=== PATIENT | female | born 1970 | race Caucasian/White ===

== ENCOUNTER 2022-10-07 09:22 | Observation (INO) ==
[2022-10-07] MEDS ORDERED: MoRPHine SULFATE 2 MG/ML CARP IV STA (09:38)
[2022-10-07] MEDS ORDERED: NITROGLYCERIN 2% OINTMENT 30GM TUBE EXT STA (09:38)
[2022-10-07] MEDS ORDERED: ASPIRIN CHEW 324 MG ONE (09:43)
[2022-10-07] MEDS ORDERED: SODIUM CHLORIDE 0.9% 1000ML 1,000 ML IV SCH (09:45)
--- NOTE | 2022-10-07 09:48 | Emergency Department Note ---
Impression & Plan Chest pain, Abnormal ECG, Hypertension, ACS (acute coronary syndrome) ED Provider Note ED Provider Note NAME: COLLEEN BARNETT AGE:52 SEX: Female : 1970 ARRIVES VIA: Private INFORMANT: Patient ED PROVIDER(s): Livia Tijerina DO CHIEF COMPLAINT: Chest pain HPI: This is a 52-year-old female presents emergency department with concern for chest pain. Patient states pain began yesterday and was across her chest alth ough worse on the left side and felt as though it was radiating into her left shoulder. No further radiation down the left upper extremity. She states she was nauseated. She thought perhaps she had indigestion so she tried drinking Pepto-Bismol and then took an [id number] Prilosec without any improvement. Patient states the pain kept her awake most of the night and she could not find a comfortable position. Patient also notes she has been slightly more short of breath the last 2 days. She states in the middle the night she thought perhaps maybe this was bronchitis instead so she took a prednisone she had leftover from a prior episode. Patient states this did not help after several hours so this morning at 6 AM she took a hydrocodone she had leftover from a prior injury. She states this did not improve her symptoms either. Patient states she does have high blood pressure and is a smoker. She states no other recent change in medications or activity. Patient states she did have a cardiac catheterization 5 to 6 years ago and she was told she had several 60 and 70% blockages although no intervention was otherwise performed at that time. She states she has not followed up with cardiology since then. PAST MEDICAL HISTORY:See Below PAST SURGICAL HISTORY:See Below FAMILY HISTORY:See Below SOCIAL HISTORY:See Below HOME MEDICATIONS:See Below ALLERGIES:See Below VITALS:See Below PHYSICAL EXAMINATION: GENERAL: alert, well appearing, well nourished, no distress, non-toxic EYE EXAM: normal conjunctiva, PERRL and EOM's grossly intact OROPHARYNX: no exudate, no erythema, lips, buccal mucosa, and tongue normal and mucous membranes are moist NECK: supple, no nuchal rigidity, no adenopathy, non-tender LUNGS: Clear to auscultation. Normal chest wall mechanics, no w/r/r HEART: no murmurs, S1 normal and S2 normal ABDOMEN: abdomen soft, non-tender, normo-active bowel sounds, no masses, no rebound or guarding. BACK: Back is symmetrical on inspection and there is no deformity, no midline tenderness, no CVA tenderness. SKIN: no rashes, petechiae, orbruising UPPER EXTREMITIES: upper extremities are grossly normal. FROM, nml pulses b/l. LOWER EXTREMITIES: No pitting edema. FROM, nml pulses b/l. NEURO EXAM: Normal sensorium, cranial nerves II-XII grossly intact, normal speech, no facial droop,nogross weakness of arms, no gross weakness of legs. Gross sensation intact. No ataxia. Vital Signs: reviewed and remarkable Differential Diagnosis: ACS, PE, aortic dissection, pericarditis/myocarditis, coronary artery dissection, KATHY, pneumonia, hypertensive urgency, as well as others were considered MEDICAL DECISION MAKING: This is a 52-year-old female who presents emergency department due to concern for chest pain that began yesterday. Patient afebrile and vital signs stable though she was noted to be markedly hypertensive. This was presumed initially t o be secondary to pain. Patient with an abnormal EKG noted especially in comparison to an EKG from last year. While labs were drawn and sent, IV established, chest x-ray performed at bedside and patient placed on telemetry, I contacted Dr. Moore of cardiology. Dr. Moore is in agreement with concerning EKG findings and came and evaluated the patient at bedside. Case discussed with hospitalist additionally. Patient was given Nitropaste, IV morphine x2 doses, and aspirin. After discussion with Dr. Moore, Brilinta and heparin drip were also added by the hospitalist. Patient made aware of all findings and was in agreement with plan for additional intervention at this time Consultation(s): 0955: Discussed with Dr. Moore, cardiology. 1015: Discussed with Dr. Faustin, hospitalist. ER Treatment Provided: See below 1015: Dr. Moore now bedside. Diagnostics Interpreted By Me: -ECG: Normal sinus at 90, normal axis, normal intervals, ST elevation noted in 1, aVL, and V2 with appearance of early ST depression in leads III, aVF -Cardiac Monitoring: An order was placed for continuous cardiac monitoring. The monitor shows a rate of 88 with normal sinus rhythm. -Laboratory studies: As stated above and show below. -Imaging studies: X-ray Chest: A single view study of the chest was reviewed and was negative for cardiomegaly, focal infiltrate, effusion, pulmonary edema, or wide mediastinum. 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 Beliefs That Will Affect Care: None Current Living Situation: Alone Other Information That Helps Us Care for You: No Feels Safe at Home: Yes and No Is there a partner from a previous relationship who is making you feel unsafe now?: No Any Concerns about Your Family Situation: No Would You Like to Speak to Someone About Your Situation: No Safety Concerns: Feels Safe At This Time Assistive Devices: Denture - Upper, Denture - Lower and Glasses Allergies Allergies Allergy/AdvReac Type Severity Reaction Status Date / Time cefazolin Allergy Severe Severe Verified 10/07/22 10:31 hives Penicillins Allergy Unknown . Verified 07/24/21 08:56 Home Meds Home Medications Medication Instructions Recorded Confirmed hydrocodone 5 mg-acetaminophen 325 1 tab PO TID PRN Pain 10/07/22 10/07/22 mg tablet tizanidine 4 mg tablet 4 mg PO TID PRN Muscle Spasm 10/07/22 10/07/22 valsartan 160 1 tab PO HS 10/07/22 10/07/22 mg-hydrochlorothiazide 25 mg tablet Results & Data (ED) Vital Signs Vital Signs - 24 hr 10/07/22 09:24 10/07/22 09:40 10/07/22 09:55 Temperature 36.6 C Temperature Source Temporal Artery Scan Pulse Rate 98 H 90 Pulse Rate [Apical] 89 Pulse Rate from SpO2 Sensor Pulse Rhythm Regular Pulse Strength Normal Respiratory Rate 18 20 Respiratory Effort / Characteristics Non-Labored Non-Labored Respiratory Depth Normal Normal Respiratory Pattern Regular Blood Pressure 183/112 H Blood Pressure [Right Arm] 205/120 H Blood Pressure Mean 135 Blood Pressure Mean [Right Arm] 148 Blood Pressure Position Sitting Pulse Oximetry 100 99 Oxygen Delivery Method Room Air Room Air Sepsis Recent Fever Within 48 Hours No Sepsis New/Unexplained Change in Mental Status No Sepsis Action Taken by Nursing No Action Required 10/07/22 09:51 10/07/22 09:55 10/07/22 09:58 Temperature Temperature Source Pulse Rate 94 H 96 H Pulse Rate [Apical] Pulse Rate from SpO2 Sensor 94 H 99 H Pulse Rhythm Pulse Strength Respiratory Rate 18 Respiratory Effort / Characteristics Respiratory Depth Respiratory Pattern Blood Pressure Blood Pressure [Right Arm] 174/109 H Blood Pressure Mean Blood Pressure Mean [Right Arm] 130 Blood Pressure Position Pulse Oximetry 97 97 Oxygen Delivery Method Sepsis Recent Fever Within 48 Hours Sepsis New/Unexplained Change in Mental Status Sepsis Action Taken by Nursing 10/07/22 10:42 Temperature Temperature Source Pulse Rate Pulse Rate [Apical] Pulse Rate from SpO2 Sensor Pulse Rhythm Pulse Strength Respiratory Rate Respiratory Effort / Characteristics Respiratory Depth Respiratory Pattern Blood Pressure Blood Pressure [Right Arm] Blood Pressure Mean Blood Pressure Mean [Right Arm] Blood Pressure Position Pulse Oximetry Oxygen Delivery Method Room Air Sepsis Recent Fever Within 48 Hours Sepsis New/Unexplained Change in Mental Status Sepsis Action Taken by Nursing Laboratory Data 10/07/22 09:38 10/07/22 09:38 Lab Results 10/07/22 10/07/22 10/07/22 Range/Units 09:38 09:38 09:38 WBC 15.69 H (4.8-10.8) K/ul RBC 4.65 (4.20-5.40) M/uL Hgb 14.8 (12.0-16.0) g/dl Hct 42.6 (37.0-47.0) % MCV 91.6 (80.0-100.0) fL MCH 31.8 (25.0-34.0) pg MCHC 34.7 (32.0-36.0) g/dL RDW Std Deviation 41.4 (36.4-46.3) fL RDW Coeff of Evert 12.4 (11.5-14.5) % Plt Count 327 (130-400) K/uL MPV 11.5 (9.4-12.4) fL Immature Gran % (Auto) 0.3 % Neut % (Auto) 88.6 % Lymph % (Auto) 8.7 % Izard % (Auto) 2.0 % Eos % (Auto) 0.1 % Baso % (Auto) 0.3 % Neut # (Auto) 13.91 H (1.40-6.50) K/uL Lymph # (Auto) 1.36 (1.2-3.4) K/uL Izard # (Auto) 0.32 (0.11-0.59) K/uL Eos # (Auto) 0.01 (0-0.50) K/uL Baso # (Auto) 0.05 (0-0.2) K/uL Immature Gran # (Auto) 0.04 (0.01-0.20) K/uL PT 10.8 (9.0-12.0) Seconds INR 1.0 (0.9-1.1) Sodium 138 (136-145) mmol/L Potassium 3.7 (3.5-5.1) mmol/L Chloride 106 (98-107) mmol/L Carbon Dioxide 24 (21-32) mmol/L Anion Gap 8 (3-11) BUN 15 (6-23) mg/dl Creatinine 1.10 (0.6-1.2) mg/dl Est Cr Clr Drug Dosing 46.9 ml/min Est GFR ( Amer) 66.4 ml/min Est GFR (Non-Af Amer) 57.3 ml/min BUN/Creatinine Ratio 13.6 (10-20) Glucose 125 H (70-99(Fasting)) mg/dl Calcium 10.4 H (8.6-10.3) mg/dl Magnesium 1.9 (1.7-2.4) mg/dl Total Bilirubin 0.4 (0.2-1.0) mg/dl AST 103 H (13-39) U/L ALT 24 (7-52) U/L Alkaline Phosphatase 80 (34-104) U/L Troponin I High Sens 11113.4 H* (0-14) pg/ml Total Protein 8.5 H (6.0-8.3) gm/dl Albumin 5.0 (3.4-5.0) gm/dl Globulin 3.5 (2.5-4.0) gm/dl Albumin/Globulin Ratio 1.4 (0.9-2) Lipase 6 L (11-82) U/L TSH (0.300-4.500) uIu/ml SARS-CoV-2, RNA, NAAT (NEGATIVE) 10/07/22 10/07/22 Range/Units 09:38 09:57 WBC (4.8-10.8) K/ul RBC (4.20-5.40) M/uL Hgb (12.0-16.0) g/dl Hct (37.0-47.0) % MCV (80.0-100.0) fL MCH (25.0-34.0) pg MCHC (32.0-36.0) g/dL RDW Std Deviation (36.4-46.3) fL RDW Coeff of Evert (11.5-14.5) % Plt Count (130-400) K/uL MPV (9.4-12.4) fL Immature Gran % (Auto) % Neut % (Auto) % Lymph % (Auto) % Izard % (Auto) % Eos % (Auto) % Baso % (Auto) % Neut # (Auto) (1.40-6.50) K/uL Lymph # (Auto) (1.2-3.4) K/uL Izard # (Auto) (0.11-0.59) K/uL Eos # (Auto) (0-0.50) K/uL Baso # (Auto) (0-0.2) K/uL Immature Gran # (Auto) (0.01-0.20) K/uL PT (9.0-12.0) Seconds INR (0.9-1.1) Sodium (136-145) mmol/L Potassium (3.5-5.1) mmol/L Chloride (98-107) mmol/L Carbon Dioxide (21-32) mmol/L Anion Gap (3-11) BUN (6-23) mg/dl Creatinine (0.6-1.2) mg/dl Est Cr Clr Drug Dosing ml/min Est GFR ( Amer) ml/min Est GFR (Non-Af Amer) ml/min BUN/Creatinine Ratio (10-20) Glucose (70-99(Fasting)) mg/dl Calcium (8.6-10.3) mg/dl Magnesium (1.7-2.4) mg/dl Total Bilirubin (0.2-1.0) mg/dl AST (13-39) U/L ALT (7-52) U/L Alkaline Phosphatase (34-104) U/L Troponin I High Sens (0-14) pg/ml Total Protein (6.0-8.3) gm/dl Albumin (3.4-5.0) gm/dl Globulin (2.5-4.0) gm/dl Albumin/Globulin Ratio (0.9-2) Lipase (11-82) U/L TSH 0.611 (0.300-4.500) uIu/ml SARS-CoV-2, RNA, NAAT NEGATIVE (NEGATIVE) Administered Medications Discontinued Medications Aspirin (Aspirin Chew 324 Mg) Confirm Administered Dose 324 mg .ROUTE .STK-MED ONE Stop: 10/07/22 09:44 Last Admin: 10/07/22 09:55 Dose: Not Given Documented By: JO Aspirin (Aspirin Chew 324 Mg) 324 mg PO NOW STA Stop: 10/07/22 09:53 Last Admin: 10/07/22 09:55 Dose: 324 mg Documented By: JO Fentanyl Citrate (Fentanyl Citrate Pf 100 Mcg/2 Ml Vial) Confirm Administered Dose 100 mcg .ROUTE .STK-MED ONE Stop: 10/07/22 10:38 Last Admin: 10/07/22 12:10 Dose: 100 mcg Documented By: DAYNE Heparin Sodium (Porcine) (Heparin Sod (Porcine) 1000 Unit/Ml) 5,000 units IV NOW ONE Stop: 10/07/22 10:46 Last Admin: 10/07/22 12:12 Dose: Not Given Documented By: DAYNE Heparin Sodium (Porcine) (Heparin (Porcine) 1000 Unit/Ml 10 Ml (Hydrographer Use Only)) Confirm Administered Dose 10,000 units .ROUTE .STK-MED ONE Stop: 10/07/22 10:38 Last Admin: 10/07/22 12:21 Dose: 9,000 units Documented By: DAYNE Heparin Sodium/Sodium Chloride (Heparin In Nss Infusion 1000 Unit/500 Ml (2 U/Ml) Bag) Confirm Administered Dose 3,000 units IV .STK-MED ONE Stop: 10/07/22 10:38 Last Admin: 10/07/22 12:10 Dose: 3,000 units Documented By: DAYNE Hydralazine HCl (Hydralazine Hcl 20 Mg/Ml Vial) Confirm Administered Dose 20 mg .ROUTE .STK-MED ONE Stop: 10/07/22 12:09 Last Increment: 10/07/22 12:15 Dose: 10 mg Documented By: DAYNE Sodium Chloride (Nss 1000ml) 1,000 mls @ 75 mls/hr IV .[id number] TORY Stop: 10/07/22 13:02 Last Infusion: 10/07/22 14:10 Dose: 0 mls/hr Documented By: Admin: 10/07/22 09:45 Dose: 250 mls/hr Documented By: JO Midazolam HCl (Midazolam Hcl 1 Mg/Ml 2ml Vial) Confirm Administered Dose 2 mg .ROUTE .STK-MED ONE Stop: 10/07/22 10:38 Last Admin: 10/07/22 12:13 Dose: 2 mg Documented By: DAYNE Midazolam HCl (Midazolam Hcl 1 Mg/Ml 2ml Vial) Confirm Administered Dose 2 mg .ROUTE .STK-MED ONE Stop: 10/07/22 12:02 Last Increment: 10/07/22 12:24 Dose: 1 mg Documented By: DAYNE Morphine Sulfate (Morphine Sulfate 2 Mg/Ml Carp) 2 mg IV NOW STA Stop: 10/07/22 09:39 Last Admin: 10/07/22 09:45 Dose: 2 mg Documented By: JO Morphine Sulfate (Morphine Sulfate 4 Mg/Ml 1 Ml Carp\Vial) 4 mg IV NOW STA Stop: 10/07/22 10:18 Last Admin: 10/07/22 10:25 Dose: 4 mg Documented By: JO Nicardipine HCl (Nicardipine Hcl Inj 2.5 Mg/Ml 10 Ml Amp) Confirm Administered Dose 25 mg .ROUTE .ST-MED ONE Stop: 10/07/22 10:38 Last Admin: 10/07/22 12:11 Dose: 25 mg Documented By: DAYNE Nitroglycerin (Nitroglycerin 2% Ointment 30gm Tube) 1 inch EXT NOW STA Stop: 10/07/22 09:39 Last Admin: 10/07/22 09:44 Dose: 1 inch Documented By: JO Nitroglycerin/Dextrose (Nitroglycerin/D5w 100mcg/Ml 20ml Syr) Confirm Administered Dose 2,000 mcg .ROUTE .STK-MED ONE Stop: 10/07/22 10:39 Last Admin: 10/07/22 12:11 Dose: 2,000 mcg Documented By: DAYNE Ondansetron HCl (Ondansetron Inj 2 Mg/Ml 2 Ml Vial) Confirm Administered Dose 4 mg .ROUTE .STK-MED ONE Stop: 10/07/22 11:24 Last Admin: 10/07/22 12:12 Dose: 4 mg Documented By: DAYNE Ticagrelor (Ticagrelor 90 Mg Tab) 180 mg PO ONE ONE Stop: 10/07/22 10:21 Last Admin: 10/07/22 12:07 Dose: 180 mg Documented By: DAYNE Imaging Data Radiologist's Impression: Chest X-Ray 10/07/22 09:38 XR chest 1V portable CLINICAL HISTORY: Atypical chest pain. COMPARISON STUDY: Chest radiograph July 24, 2021. FINDINGS: Lung volumes are at the lower limits of normal. Incidental note is made of an azygos fissure. Lungs are clear. There is no pneumothorax or pleural effusion. Cardiac size is normal. Mediastinal contours are normal. There is no evidence for pulmonary edema. IMPRESSION: No acute cardiopulmonary findings. ACT 112: Negative or not required by law. Electronically signed by: Fer Goodwin M.D. 10/07/2022 9:59 AM Discharge Plan Visit Data Chief Complaint: Chest Pain Stated Complaint: SHARP CHEST PAIN, TINGLING DOWN R AND L SHOULDER ED Provider: Livia Tijerina Discharge Problem: Chest pain, Abnormal ECG, Hypertension, ACS (acute coronary syndrome) Patient Disposition: Admitted As Inpatient Discharge Instructions Interventions: ED Discharge Assessment Last Done: 10/07/22 10:42
[2022-10-07] MEDS ORDERED: ASPIRIN CHEW 324 MG PO STA (09:52)
--- NOTE | 2022-10-07 10:00 | XRay Report ---
XR chest 1V portable CLINICAL HISTORY: Atypical chest pain. COMPARISON STUDY: Chest radiograph July 24, 2021. FINDINGS: Lung volumes are at the lower limits of normal. Incidental note is made of an azygos fissur e. Lungs are clear. There is no pneumothorax or pleural effusion. Cardiac size is normal. Mediastinal contours are normal. There is no evidence for pulmonary edema. IMPRESSION: No acute cardiopulmonary findings. ACT 112: Negative or not required by law. Electronically signed by: Fer Goodwin M.D. 10/07/2022 9:59 AM
[2022-10-07 10:01] LABS: Basophils # (auto) 0.05 K/uL (0-0.2); Basophils % (auto) 0.3 %; Eosinophils # (auto) 0.01 K/uL (0-0.50); Eosinophils % (auto) 0.1 %; Hematocrit (blood only) 42.6 % (37.0-47.0); Hemoglobin 14.8 g/dl (12.0-16.0); Immature Granulocytes # (auto) 0.04 K/uL (0.01-0.20); Immature Granulocytes % (auto) 0.3 %; Lymphocytes # (auto) 1.36 K/uL (1.2-3.4); Lymphocytes % (auto) 8.7 %; Mean Corpuscular Hemoglobin 31.8 pg (25.0-34.0); Mean Corpuscular Hgb Conc 34.7 g/dL (32.0-36.0); Mean Corpuscular Volume 91.6 fL (80.0-100.0); Mean Platelet Volume 11.5 fL (9.4-12.4); Monocytes # (auto) 0.32 K/uL (0.11-0.59); Neutrophils # (auto) 13.91 K/uL (1.40-6.50); Neutrophils % (auto) 88.6 %; Platelet Count 327 K/uL (130-400); RDW Coefficient of Variation 12.4 % (11.5-14.5); RDW Standard Deviation 41.4 fL (36.4-46.3); Red Blood Count 4.65 M/uL (4.20-5.40); White Blood Count 15.69 K/ul (4.8-10.8)
[2022-10-07 10:12] LABS: Prothrombin Time 10.8 Seconds (9.0-12.0)
[2022-10-07] MEDS ORDERED: MoRPHine SULFATE 4 MG/ML 1 ML CARP\\VIAL IV STA (10:17)
[2022-10-07] MEDS ORDERED: TICAGRELOR 90 MG TAB PO ONE (10:20)
--- NOTE | 2022-10-07 10:34 | History & Physical Report ---
Date of Service October 07, 2022 Assessment & Plan (1) Chest pain: Plan: Jessika Trevizo is a 52-year-old female with a past medical history of hypertension, previously nonobstructive CAD who presents with chest pain. Chest pain, suspect acute TX Patient with sudden onset of constant, unremitting chest pain with some sweating and shortness of breath which onset at least 8-12 hours prior to presentation to the ER. Pain has not improved with Pepto-Bismol, prednisone, or hydrocodone. Pain has not significantly improved following nitro, did slightly improve with morphine while in the ER Patient reports she has had multivessel nonobstructive CAD in the past which did not require stenting, but this was many years ago She does not take aspirin. She is a current smoker. She has a history of hypertension poor outpatient control, hyperlipidemia not on a statin. No hi story of diabetes Chest x-ray: No acute findings Admitting EKG: Sinus. ST depressions are present in inferior leads, reciprocal change T wave inversions in I/aVL. QTc 479. Baseline EKG 06/2021: Sinus bradycardia rate 52. No ST segment or T wave changes. QTc 431 On admission patient has a slight leukocytosis of 15 in the setting of 1 dose of prednisone, hemoglobin is normal at 14.8, INR normal High-sensitivity troponin 95073 on admission consistent with ACS BMP pending on admission TSH normal Cardiology consulted, patient taken emergently to cardiac White [employer]ion [employer]er. Full dose aspirin, heparin 5000 units IV and Brilinta 180 mg x 1 given while in ER. Further recommendations pending catheterization results Hypertension Patient's been on various medications in the past with difficulty controlling her hypertension. Her beta-alanna was most recently stopped, and she is currently only on valsartanhydrochlorothiazide 320/25 mg taken in the evening. She does not take aspirin on admission, anticipate DAPT if stented for CAD Goal BSG while inpatient less than systolic 180 Anticipate beta-alanna addition following catheterization Patient has had difficult to control hypertension over the preceding year and has been on valsartanHCTZ, carvedilol, chlorthalidone, amlodipine, and metoprolol with inadequate success. Will obtain renal artery Dopplers for resistant hypertension post cath if remaining hypertensive. Denies history of hypokalemia/lower suspicion for hyperaldosteronism. Hyperlipidemia Lipid panel pending, patient does report she has a past history of hyperlipidemia not on statin. Denies history of myalgia Atorvastatin 80 mg ordered, adjust if needed based on lipid panel results Chronic back pain Multimodal pain control. Tylenol first-line, lidocaine patch second line, may use oxycodone 3 times daily for breakthrough. Hold for sedation Sensation of soft touch in hands and feet intact, moving all extremities equally at admission with no acute weakness. No loss of bowel/bladder function. No urinary retention. Current tobacco use Tobacco counseling provided. Patient expresses understanding that ongoing tobacco use increases her risk of heart attack and stroke, does express a strong interest in quitting especially given her current TX and family history of TX Patient would like NRT while in the hospital, patch ordered. Recommend PCP follow-up with continued and RT and tobacco cessation support DVT prophylaxis: SCDs pending creatinine results, PPx dose Lovenox starting 10/08 if no creatinine elevation or bleeding complications Diet: N.p.o. pending catheterization Disposition: PCU, currently undergoing catheterization CODE STATUS: Full code (2) Hypertension: (3) Abnormal ECG: History of Present Illness Primary Care Provider: Adalberto Pham MD Jessika reprots yesterday while at work she develops a gripping chest pain in the center of her chest. Tried pepcid-AC and tums and 'ate them a good hour straight' with no improvement/easing in her pain.Laid sitting upwards in the and continued to have chest pain. Eventually fell asleep, when she woke up still had pain in her chest. Tried prednisone she had leftover from bronchitis but that did not help at all. Later tried a hydrocodone which also did not help with the pain. She was then going to go to urgent care but daughter directed her to go to the ER. - Pain is radiating into her shoulder, currently 6/10. Worst was overnight ~8/10. Pain has been contstant since last night with no periods of complete remissions - Endorses shortness of breath with her chest pain. Attributed this to the bad smog initially - She has had clammy sweats and hot flashes for the last day. No fevers. - No leg swelling - +Nausea, no vomiting - No diarrhea/constipation History of cardiac catheterization at [facility], Dr. Bowen, in [place]. Was found to have multiple blockages, but none requiring a stent. No history of heart attack +Hx HTN No history of Afib No history of DM Hx HLD, not on any statin. Hasn't had testing in 'a while.' Med Review: - Hydrocodone for herniatic disk which radicular pain into the L left - Valsartan/hctz 2 tablets at night 25. - No longer takes carvedilol no metroprolol - Does not take aspirin Medical History: Reviewed Medications: Reviewed. Allergic to PCN (highly allergic, purple rash and swelling. Also cannot tolerate cephalosporins/keflex. Severe rxn and swelling ot keflex). Surgical History: Reviewed Family history: Reviewed. FHx of massive TX 66yo, father had 3x MIs and at 69 from massive 3rd TX. Allergies: Reviewed Social History: Current tobacco use 1ppd, 30 years. No etoh use. No rec drug or etoh use. Code Status: Full Allergies Allergy/AdvReac Type Severity Reaction Status Date / Time cefazolin Allergy Severe Severe Verified 10/07/22 10:31 hives Penicillins Allergy Unknown . Verified 07/24/21 08:56 Home Medications Medication Instructions Recorded Confirmed Type hydrocodone 5 mg-acetaminophen 325 1 tab PO TID PRN Pain 10/07/22 10/07/22 History mg tablet tizanidine 4 mg tablet 4 mg PO TID PRN Muscle Spasm 10/07/22 10/07/22 History valsartan 160 1 tab PO HS 10/07/22 10/07/22 History mg-hydrochlorothiazide 25 mg tablet Past Med/Surg History Medical History Hypertension Family History Other Family history non-contributory Social History Smoking Status: Current every day smoker Tobacco Type: Cigarettes Preferred Language: Trinidadian Feels Safe at Home: Yes Review of Systems Review of Systems: All systems reviewed & are unremarkable except as noted in HPI & below Physical Exam Physical Exam: General: A&Ox3. NAD. Cooperative. HEENT: Atraumatic, normocephalic. Vision/hearing intact Pulm: CTAB A&P. -wheezes, -rales, -rhonchi. Symmetrical chest rise. No increased work of breathing. No respiratory distress. Cardiac: RRR, -mrg. Radial pulses intact and symmetrical. No JVD. No sternal tenderness to palpation Abdominal: Nontender, nondistended, soft. BS present. Ext: warm, dry. No edema. Moves all extremities equally Results & Data Results & Data Vital Signs (Past 12 Hours) Vital Signs Temp Pulse Pulse Resp BP BP Pulse Ox 10/07/22 09:58 174/109 H 10/07/22 09:55 96 H 97 10/07/22 09:51 94 H 18 97 10/07/22 09:55 90 10/07/22 09:40 89 20 205/120 H 99 10/07/22 09:24 36.6 C 98 H 18 183/112 H 100 O2 Del Method 10/07/22 09:58 10/07/22 09:55 10/07/22 09:51 10/07/22 09:55 10/07/22 09:40 Room Air 10/07/22 09:24 Room Air PG Care Time/CCT Total # of Minutes Spent Total Time Spent with Patient: Total time spent is greater than 50% in coordination of care (as documented) at patient's floor/unit and/or counseling patient: Coding Level of Care Code 18513 INT INP/OBS CARE 3/75MIN Diagnoses Chest pain R07.9 Hypertension I10 Abnormal ECG R94.31
[2022-10-07] MEDS ORDERED: HEPARIN (PORCINE) 1000 UNIT/ML 10 ML (CATH LAB USE ONLY) ONE (10:37)
[2022-10-07] MEDS ORDERED: niCARdipine HCL INJ 2.5 MG/ML 10 ML AMP ONE (10:37)
[2022-10-07] MEDS ORDERED: MIDAZOLAM HCL 1 MG/ML 2ML VIAL ONE ×2 (10:37→12:01)
[2022-10-07] MEDS ORDERED: fentaNYL citrate PF 100 MCG/2 ML VIAL ONE (10:37)
[2022-10-07] MEDS ORDERED: NITROGLYCERIN/D5W 100MCG/ML 20ML SYR ONE (10:38)
[2022-10-07] MEDS ORDERED: HEPARIN SOD (PORCINE) 1000 UNIT/ML IV ONE (10:45)
[2022-10-07] MEDS ORDERED: NITROGLYCERIN SL 0.4 MG/TAB TAB SL PRN (10:48)
[2022-10-07] MEDS ORDERED: MoRPHine SULFATE 2 MG/ML CARP IV PRN (10:48)
[2022-10-07] MEDS ORDERED: ACETAMINOPHEN 325 MG TAB PO PRN (10:48)
--- NOTE | 2022-10-07 10:53 | Pre Anesthesia Assessment ---
Date of Service October 07, 2022 Pre Sedation Assessment Vital Signs Temp Pulse Pulse Resp BP BP Pulse Ox 10/07/22 10:42 10/07/22 09:58 174/109 H 10/07/22 09:55 96 H 97 10/07/22 09:51 94 H 18 97 10/07/22 09:55 90 10/07/22 09:40 89 20 205/120 H 99 10/07/22 09:24 97.9 F 98 H 18 183/112 H 100 O2 Del Method 10/07/22 10:42 Room Air 10/07/22 09:58 10/07/22 09:55 10/07/22 09:51 10/07/22 09:55 10/07/22 09:40 Room Air 10/07/22 09:24 Room Air Cardiovascular RRR, no murmur, no edema Respiratory normal respiratory effort, lungs clear to auscultation Pre-Sedation Airway Assessment Smoking Status: Current every day smoker Hx Sleep Apnea: No Hx Difficult Intubation: No Short, Thick Neck: No Thyromental Distance: > or= 3.5 Finger Breadths Oral Cavity: + WNL Mallampati Class: III ASA: ASA3 Procedure Planning Contraindications for Sedation: none Current Medications Reviewed: Yes Notes The planned sedation has been discussed with the patient. Informed Consent was obtained. I have identified the patient, determined the appropriateness of sedation and have assessed the patient immediately prior to the procedure. All medicine(s) and interventions are by my order.
[2022-10-07 10:54] LABS: Troponin I High Sensitivity 13326.4 pg/ml (0-14)
[2022-10-07 11:02] LABS: Bilirubin,Total 0.4 mg/dl (0.2-1.0); Calcium 10.4 mg/dl (8.6-10.3); Magnesium 1.9 mg/dl (1.7-2.4); Potassium 3.7 mmol/L (3.5-5.1)
[2022-10-07 11:08] LABS: Albumin Globulin Ratio 1.4 (0.9-2); BUN Creatinine Ratio 13.6 (10-20); Creatinine Clr Calc Pharmacy 46.9 ml/min; Est GFR (African American) 66.4 ml/min; Est GFR (Non-African American) 57.3 ml/min; Globulin 3.5 gm/dl (2.5-4.0); Total Protein 8.5 gm/dl (6.0-8.3)
[2022-10-07] MEDS ORDERED: ONDANSETRON INJ 2 MG/ML 2 ML VIAL ONE (11:23)
[2022-10-07] MEDS ORDERED: hydrALAZINE HCL 20 MG/ML VIAL ONE (12:08)
--- NOTE | 2022-10-07 12:56 | Post Anesthesia Assessment ---
Date of Service October 07, 2022 Post Sedation Assessment Vital Signs Temp Pulse Pulse Resp BP BP Pulse Ox 10/07/22 12:45 78 18 151/93 H 96 10/07/22 12:30 97 H 18 151/92 H 96 10/07/22 12:20 94 H 18 156/95 H 97 10/07/22 10:42 10/07/22 09:58 174/109 H 10/07/22 09:55 96 H 97 10/07/22 09:51 94 H 18 97 10/07/22 09:55 90 10/07/22 09:40 89 20 205/120 H 99 10/07/22 09:24 97.9 F 98 H 18 183/112 H 100 O2 Del Method 10/07/22 12:45 Room Air 10/07/22 12:30 Room Air 10/07/22 12:20 Room Air 10/07/22 10:42 Room Air 10/07/22 09:58 10/07/22 09:55 10/07/22 09:51 10/07/22 09:55 10/07/22 09:40 Room Air 10/07/22 09:24 Room Air Recovery Score Activity: Moves 4 extremities Respiration: Deep Breath/Cough Circulation: +/-20% PreAnes Value Consciousness: Fully Awake Oxygen Saturation: > 92% On Room Air Post Anesthesia Score: 10 Discharge Sedation Level of Care: Fast Track Phase II Post Sedation Plan On clinical assessment, the patient appears to have tolerated the sedation without complications. Patient is recovering as anticipated. Patient will continue to be monitored by nursing and may be discharged when sedation discharge criteria are met per below protocol. Upon Completions of procedure up to 15 minutes continue every 5 minute vital signs and the P.A.R. score; then discharge to a Phase I or Fast Track to Phase II per the following guidelines: * Discharge Patient to appropriate Phase II area if PAR is 8 or greater or return to pre- procedure baseline. The post - procedure orders will be as directed. * If PAR score is less than 8 or not return to pre-procedure baseline then patient will follow Phase I monitoring till PAR is reached for Phase II. The Phase I may be done in procedure room or may call to secure a Phase I area. * If naloxone or flumazenil are used for reversal, hold in Phase I for continued monitoring from when last reversal dose was given for a minimum of 60 minutes or longer pending the nurse and/or physician discretion of patient condition before discharge to Phase II. Please call the Sedation Physician to re-evaluate and complete post-note for discharge to Phase II area. Do NOT discharge from procedure sedation or Phase 1 until post- sedation evaluation note is complete by procedure /sedation MD Sedation Discharge Instructions to be given to the patient at discharge to home.
--- NOTE | 2022-10-07 12:59 | Post Operative Brief Note ---
Cardiology Brief Post Op Date of Surgery October 07, 2022 Pre & Post Diagnosis NSTEMI Procedure CAD Post PCI to diagonal Post PCI to LAD Welding Estimator Balwinder Moore MD Admeasurer Showers Estimated Blood Loss 15 Findings See Below 100% 1st Diagonal 75% mid LAD by IVUS Successful PCI of Diagonal with 2.25 x 15 Xience Successful PCI of mid LAD with 3.0 x 28 Xience Complications none Disposition Accompanied Patient To Recovery: Yes Disposition: PCU
--- NOTE | 2022-10-07 15:23 | Cardiology Consultation ---
Date of Consultation October 07, 2022 Assessment & Plan (1) ACS (acute coronary syndrome): Presentation consistent with high risk NSTEMI and recommend proceeding with urgent cardiac catheterization and likely PCI. No apparent contraindications to procedure. Discussed risks, benefits, alternatives of procedure with patient and they are willing to proceed. Given IV heparin and ticagrelor 180 mg in the ED. Further recommendations pending findings of coronary angiography. History of Present Illness Attending Physician: Balwinder Moore MD History of Present Illness Ms. Paris is a very pleasant 52-year-old woman here with acute chest pain and ECG concerning for ACS. Patient seen urgently in the ED with active/ongoing chest pain. She reports a history of prior coronary disease with angina. Previously underwent cardiac catheterization approximately 5 years ago in [facility] [address]. Per patient was told that she had a 60% stenosis and medical management recommended. Cardiac risk factors include hypertension, ongoing/long-term tobacco use. Yesterday she states she was at work when developed chest pain radiating to her back with associated nausea. She tried multiple vfgp-[id number] medications without relief. Symptoms persisted overnight at their worst 8 out of 10 this morning and presented to ED. On arrival ongoing active pain. Initial ECG showed subtle ST elevations in 1 and aVL new from prior ECG. Initial HS TropI elevated at 13,000. Mild relief with nitroglycerin, morphine. Social history: Moved back to the area from [place], [place]. 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 Has smoked for more than 30 years, 1 pack/day. Allergies Allergy/AdvReac Type Severity Reaction Status Date / Time cefazolin Allergy Severe Severe Verified 10/07/22 10:31 hives Penicillins Allergy Unknown . Verified 07/24/21 08:56 Home Medications Medication Instructions Recorded Confirmed Type hydrocodone 5 mg-acetaminophen 325 1 tab PO TID PRN Pain 10/07/22 10/07/22 History mg tablet tizanidine 4 mg tablet 4 mg PO TID PRN Muscle Spasm 10/07/22 10/07/22 History valsartan 160 1 tab PO HS 10/07/22 10/07/22 History mg-hydrochlorothiazide 25 mg tablet Patient History Medical History Hypertension Family History Other Family history non-contributory Social History Smoking Status: Current every day smoker Tobacco Type: Cigarettes Second Hand Exposure: Yes; Do You Dip or Chew Tobacco: No; Hx Alcohol Use: Yes Alcohol type: wine Hx Substance Use: No Preferred Language: Serbian New Car Inspector Required: No Beliefs That Will Affect Care: None Current Living Situation: Alone Other Information That Helps Us Care for You: No Feels Safe at Home: Yes and No Is there a partner from a previous relationship who is making you feel unsafe now?: No Any Concerns about Your Family Situation: No Would You Like to Speak to Someone About Your Situation: No Safety Concerns: Feels Safe At This Time Assistive Devices: Denture - Upper, Denture - Lower and Glasses Review of Systems Review of Systems: All systems reviewed & are unremarkable except as noted in HPI & below Physical Exam Physical Exam: General: Uncomfortable HEENT: Sclerae anicteric Lungs: Clear to auscultation bilaterally Cardiac: Regular rate and rhythm, no murmurs. Vascular: 2+ radial Abdomen: Soft, nontender Extremities: Well perfused, no peripheral edema Neuro: Nonfocal Psych: Alert orient x3, normal affect and mood Results & Data Vital Signs (Past 12 Hours) Vital Signs Temp Pulse Pulse Resp BP BP Pulse Ox 10/07/22 10:42 10/07/22 09:58 174/109 H 10/07/22 09:55 96 H 97 10/07/22 09:51 94 H 18 97 10/07/22 09:55 90 10/07/22 09:40 89 20 205/120 H 99 10/07/22 09:24 97.9 F 98 H 18 183/112 H 100 O2 Del Method 10/07/22 10:42 Room Air 10/07/22 09:58 10/07/22 09:55 10/07/22 09:51 10/07/22 09:55 10/07/22 09:40 Room Air 10/07/22 09:24 Room Air PG Care Time/CCT Total # of Minutes Spent Total Time Spent with Patient: Total time spent is greater than 50% in coordination of care (as documented) at patient's floor/unit and/or counseling patient: Coding Level of Care Code 06084 OFFICE CONSULT LVL 4/40M Diagnoses ACS (acute coronary syndrome) I24.9
--- NOTE | 2022-10-07 15:27 | Cardiac Catheterization ---
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 Cardiac Status Clinical evaluation leading to the procedure CAD Presenation: Non STEMI Anginal Classification: CCS IV Diagnostic Physicians Name: Balwinder Moore MD Closure Device Recommendations: PCI without planned CABG Cardiac Cath Procedure Full Procedure Date October 07, 2022 Pre-Procedure Diagnosis Pre-Procedure Diagnosis: Non STEMI AUC Score AUC Score: 8 Post-Procedure Diagnosis Post-Procedure Diagnosis: Severe CAD, Successful PCI and Normal Intracardiac Pressures Procedure(s) Performed Procedure(s) Performed: Coronary Angiography, Left Heart Cath, Drug Eluting Stent and IVUS Ultrasonographer Balwinder Moore MD Tax Adjuster(s) Showers Estimated Blood Loss Estimated Blood Loss: 15 Medication(s) Medication(s): Fentanyl, Heparin, Lidocaine 1%, Nicardipine, Nitroglycerin and Versed Summary of Findings Indication: High risk NSTEMI Access: 6 Fr right radial artery Catheters: [place], EBU 3.5 guide Findings: LM -normal caliber, no significant disease LAD -medium caliber, proximal luminal regularities, diffuse mid segment disease up to 50 to 60%. Distal vessel without significant disease and wraps around apex. Small to medium caliber D2 100% acute occlusion at ostium. Small D3 without disease. Circumflex -medium caliber, 30 to 40% mid segment stenosis, remainder of AV groove circumflex without significant disease. Proximal medium OM2 with 30% stenosis. RCA -dominant, medium caliber, 30 to 40% mid segment focal stenosis, distal vessel and RPDA without significant disease. LVEDP -19 -- PCI -- Antithrombotic therapy: Heparin, ticagrelor Procedure: Left main cannulated with EBU 3.5 guide Coding Analyst 50 wire passed across ostial D2 occlusion into distal vessel Intravascular position confirmed via injection through OTW balloon Flow reestablished in D2 with angioplasty with 2.0 balloon Prowater wire placed into distal LAD Reyes Qoof IVUS catheter placed across mid LAD stenosis into distal vessel. Pullback revealed diffuse moderate to severe disease up to 75% by IVUS, mildly calcified. Mild proximal disease, no significant left main disease. IVUS of D2 revealed diffuse disease extending to ostium. Mid LAD lesion stented with 3.0 x 28 mm Xience drug-eluting stent beginning just after takeoff of D2 Stent postdilated with 3.5 NC Proximal D2 predilated with 2.0 balloon Ostial/proximal D2 stented with 2.25 x 15 mm Xience drug-eluting stent Stent postdilated with stent balloon IC vasodilators administered for spasm Post procedure JAMES 3 flow throughout, stents well expanded with minimal residual stenosis and no apparent cardiac complications. Arterial Closure: TR band Summary: 1. Severe coronary artery disease Acute 100% ostial occlusion small to medium second diagonal 75% mid LAD stenosis by IVUS 2. Mild to moderate nonculprit vessel CAD 30 to 40% mid RCA, 30 to 40% mid circumflex 3. Elevated intracardiac filling pressure 4. Successful PCI of occluded D2 with single WILLIAM (2.25 x 15 mm Xience). 5. Successful PCI of mid LAD stenosis with single WILLIAM (3.0 x 28 mm Xience; postdilated with 3.5 NC). Recommendations: To PCU for continued monitoring Loaded with ticagrelor 180 mg Continue dual-antiplatelet therapy for at least 1 year Continue statin, and ASCVD risk factor modification including smoking cessation Consult cardiac Rehab Hemodynamics Rest Ao:: 160/83/118 Final Ao: 135/83/106 LV: 166/19 Recommendations Recommendations: PCI without planned CABG Specimens Specimens: None Radiation Exposure (mGy) 2512 Contrast (mls) 165 Anesthesia Moderate 9264-9606 Procedural Complication(s) None Disposition PCU I attest to the content of the Intraoperative Record and any orders documented therein. Any exceptions are noted below. M&D ANTIQUES & CONSIGNMENTG Card Cath Procedure Codes Cardiac Catheterization Procedure 1: Cardiovascular Cath Procedures: 02503 Coronaries and LHC (+/-LV) Therapeutic Services & Ancillary Procedure 1: Cardiovascular Tx and Anc Procedures: 02517 IV Ultrasound (Coronary or Graft) Moderate Sedation Procedure 1: Sedation/Anesthesia: 29703 Mod Sedation by the same physician;Init15 Min Child Age 5 & Up Procedure 2: Sedation/Anesthesia: 62398 Mod Sedation by the same physician; Ea [id number] Minutes Stenting Procedure 1: Cardiovascular Stent Procedures: 00871 Perc transluminal revascularization of acute sub/total occl, aMI PG Care Time/CCT Total # of Minutes Spent Total Time Spent with Patient: Total time spent is greater than 50% in coordination of care (as documented) at patient's floor/unit and/or counseling patient:
[2022-10-07] MEDS: METOPROLOL TARTRATE 25 MG TAB PO SCH (20:04)
[2022-10-07] MEDS: HYDROCODONE/ACETAMOPHEN 5/325MG TAB PO PRN (20:04)
[2022-10-08 01:28] LABS: Basophils # (auto) 0.05 K/uL (0-0.2); Basophils % (auto) 0.3 %; Eosinophils # (auto) 0.05 K/uL (0-0.50); Eosinophils % (auto) 0.3 %; Hemoglobin 13.2 g/dl (12.0-16.0); Immature Granulocytes # (auto) 0.05 K/uL (0.01-0.20); Immature Granulocytes % (auto) 0.3 %; Lymphocytes # (auto) 4.27 K/uL (1.2-3.4); Lymphocytes % (auto) 27.1 %; Mean Corpuscular Hemoglobin 32.2 pg (25.0-34.0); Mean Corpuscular Hgb Conc 34.7 g/dL (32.0-36.0); Mean Corpuscular Volume 92.7 fL (80.0-100.0); Mean Platelet Volume 11.6 fL (9.4-12.4); Monocytes # (auto) 1.33 K/uL (0.11-0.59); Monocytes % (auto) 8.4 %; Neutrophils # (auto) 9.99 K/uL (1.40-6.50); Neutrophils % (auto) 63.6 %; Platelet Count 257 K/uL (130-400); RDW Coefficient of Variation 12.8 % (11.5-14.5); RDW Standard Deviation 43.3 fL (36.4-46.3); White Blood Count 15.74 K/ul (4.8-10.8)
[2022-10-08 01:38] LABS: Bilirubin Direct 0.1 mg/dl (0-0.2); Bilirubin,Total 0.5 mg/dl (0.2-1.0); Calcium 9.5 mg/dl (8.6-10.3); Chol HDL Ratio 8.6 (0-5); Est GFR (African American) 56.9 ml/min; Est GFR (Non-African American) 49.1 ml/min; Potassium 3.6 mmol/L (3.5-5.1)
[2022-10-08] MEDS: HYDROCODONE/ACETAMOPHEN 5/325MG TAB PO PRN ×2 (06:17→13:21)
[2022-10-08] MEDS: METOPROLOL TARTRATE 25 MG TAB PO SCH (07:53)
[2022-10-08] MEDS ORDERED: ASPIRIN 81 MG ECTAB PO SCH (09:00)
[2022-10-08] MEDS ORDERED: ATORVASTATIN 40 MG TAB PO SCH (09:00)
[2022-10-08] MEDS ORDERED: TICAGRELOR 90 MG TAB PO SCH (09:00)
--- NOTE | 2022-10-08 09:37 | XCELERA ---
[id number] \\[id number]
[2022-10-08 09:45] LABS: Estimated Average Glucose 108 mg/dl; Hemoglobin A1C 5.4 % (4.5-5.6)
--- NOTE | 2022-10-08 15:46 | Discharge Summary ---
Date of Service October 08, 2022 Admission HPI Per Admitting Provider Jessika Trevizo is a 52-year-old female with a past medical history of hypertension, previously nonobstructive CAD who presents with chest pain. Chest pain, suspect acute LA Patient with sudden onset of constant, unremitting chest pain with some sweating and shortness of breath which onset at least 8-12 hours prior to presentation to the ER. Pain has not improved with Pepto-Bismol, prednisone, or hydrocodone. Pain has not significantly improved following nitro, did slightly improve with morphine while in the ER Patient reports she has had multivessel nonobstructive CAD in the past which did not require stenting, but this was many years ago She does not take aspirin. She is a current smoker. She has a history of hypertension poor outpatient control, hyperlipidemia not on a statin. No history of diabetes Chest x-ray: No acute findings Admitting EKG: Sinus. ST depressions are present in inferior leads, reciprocal change T wave inversions in I/aVL. QTc 479. Baseline EKG 06/2021: Sinus bradycardia rate 52. No ST segment or T wave changes. QTc 431 On admission patient has a slight leukocytosis of 15 in the setting of 1 dose of prednisone, hemoglobin is normal at 14.8, INR normal High-sensitivity troponin 73240 on admission consistent with ACS BMP pending on admission TSH normal Cardiology consulted, patient taken emergently to cardiac Carbide Tool Maker. Full dose aspirin, heparin 5000 units IV and Brilinta 180 mg x 1 given while in ER. Further recommendations pending catheterization results Principal Diagnosis Acute coronary syndrome status post 2 drug-eluting stent placed Discharge Exam Patient appears stable for discharge with no shortness of breath cardiac exam is regular Discharge Data Allergies Allergy/AdvReac Type Severity Reaction Status Date / Time cefazolin Allergy Severe Severe Verified 10/07/22 10:31 hives Penicillins Allergy Unknown . Verified 07/24/21 08:56 Consultations 10/07/22 10:18 ED Decision to Admit Stat 10/07/22 13:02 Consult Cardiac Rehabilitation Routine Procedures Performed Operation Date: 10/07/22 10:45 Actual Procedures s Cineradiography w/Routine Exam - Kendall Moore MD s Cath, Left with Cors and Vent - Kendall Moore MD s IVUS Coronary Single Vessel - Kendall Moore MD p Drug Eluting Stent SGl Vessel - Kendall Moore MD Ordered Studies 10/07/22 10:37 CL Cath Imgs for PACS use only Stat 10/07/22 12:34 CL IVUS Coronary Single Vessel Routine Hospital Course (1) Chest pain: Patient presents with acute coronary syndrome taken to the cardiac Carbide Tool Maker as mentioned in interval history she is previously known to have coronary disease. She had the following Carbide Tool Maker report 1. Severe coronary artery disease Acute 100% ostial occlusion small to medium second diagonal 75% mid LAD stenosis by IVUS 2. Mild to moderate nonculprit vessel CAD 30 to 40% mid RCA, 30 to 40% mid circumflex 3. Elevated intracardiac filling pressure 4. Successful PCI of occluded D2 with single WILLIAM (2.25 x 15 mm Xience). 5. Successful PCI of mid LAD stenosis with single WILLIAM (3.0 x 28 mm Xience; postdilated with 3.5 NC). Patient be discharged on dual antiplatelet agents currently Brilinta and aspirin but if Brilinta is not covered we will transition to Plavix atorvastatin and metoprolol. Her losartan will be held at this time unless blood pressure will allow and then DAHIANA inhibitor's or ARB's will be restarted. Cardiac echocardiogram showed an EF of 45 to 50% with severe hypokinesis and akinesis to the mid anteroseptum and mild inferior septum. Mild hypokinesis patient will need outpatient follow-up to see if her ejection fraction improves after stents are applied or if she would benefit from afterload reduction. Dr. Moore recommended cardiac rehab Social History: Current tobacco use 1ppd, 30 years. Tobacco cessation was counseled and recommended Code Status: Full (2) Hypertension: (3) Abnormal ECG: Total Time Total Time Spent Total Time Spent (In Minutes): It required greater than 30 minutes to prepare this patient for discharge Discharge Plan Discharge Items Patient Disposition: Home - Self-Care Reason For Visit: CHEST PAIN, ACUTE LA Discharge Diagnosis: n stemi wtih carciac stents placed in left anterior descending, and diagonal branch of LAD Activity: Per Instructions section Activity Comment: no intentional exercise until after Dr Moore follow up unless cardiac rehab Non-emergency contact: Primary Care Provider and Transportation Maintenance Supervisor Call non-emergency contact if: your symptoms worsen Follow-up/Referrals: Kendall Moore MD [Physician] - Adalberto Pham MD [Primary Care Provider] - Diet: Heart Healthy [facility] Attending Provider Instructions: ACTIVITY RECOMMENDATIONS: Excess manipulation of the wrist should be avoided for the next 24-48 hours. * No lifting over 2 pounds (approximately a 1/2 gallon of milk) with the utilized arm for 24 hours. * No strenuous activity such as bowling or tennis for 3 days. * Keep the site of the procedure covered with a bandage for 24 hours. *You may shower the day after the procedure. Do not take a tub bath or submerge the puncture site in water for the next 3 days. *Do not operate any motorized equipment for 3 days. SPECIAL CARE INSTRUCTIONS: The site may be slightly bruised and sore following your procedure. Should any of the following occur, contact the Dr. who performed your procedure. 1. Redness/inflammation, swelling, chills, or fever, or colored drainage at procedure site within 3-7 days after your procedure. 2. Coldness, discoloration, ongoing numbness, severe pain, or swelling. Expect mild tingling of hand and tenderness at the puncture site for up to three days. If this persists beyond three days, or other symptoms develop, notify the Dr. who performed your procedure. BLEEDING: If the procedure site on your wrist begins to bleed, do not panic 1. Place 1 or 2 fingers firmly just slightly above the insertion site to stop the bleeding. You may be able to feel your pulse as you hold pressure. 2. Lift your finger after 5 minutes to see if the bleeding has stopped. 3. Once the bleeding has stopped, gently wipe the wrist area clean with a bandage. * If the bleeding from your wrist does not stop after 10 minutes, or if there is a large amount of bleeding or spurting, call 911 (do not drive yourself to the hospital). SKIN IRRITATION: * You may experience some redness and/or swelling in the area where radiation was administered. If any skin irritation occurs, please contact your family physician. FOLLOW UP VISIT: Keep any scheduled doctor appointments. Pending Studies at Discharge: No Stand-Alone Forms: My [employer], Smoking Cessation Medications and DC Order Prescriptions: New atorvastatin 40 mg Tablet 40 mg PO QAM Qty: 30 3RF aspirin 81 mg Tablet,Delayed Release (Dr/Ec) 81 mg PO QAM Qty: 90 3RF nitroglycerin [Nitrostat] 0.4 mg Tablet, Sublingual 0.4 mg sublingual Q5M PRN (Reason: chest pain) Qty: 1 4RF metoprolol tartrate 25 mg Tablet 25 mg PO BID Qty: 60 3RF clopidogrel [Plavix] 75 mg tablet 75 mg PO DAILY Qty: 30 5RF Continued hydrocodone-acetaminophen 5-325 mg tablet 1 tab PO TID PRN (Reason: Pain) Discontinued tizanidine 4 mg tablet 4 mg PO TID PRN (Reason: Muscle Spasm) valsartan-hydrochlorothiazide 160-25 mg tablet 1 tab PO HS Discharge Orders: Discharge Order (Routine); Ordered 10/08/22 Ordered By: Renny Fofana/Other Patient Handouts: Heart Disease Women, Cardiac Procedures Admission Data Admit Date/Time: 10/07/22 10:48 Attending Provider: Kendall Moore Admit Provider: Freeman Faustin Primary Care Provider: Adalberto Pham Other Providers: Freeman Faustin Other Interventions: Discharge Summary Assessment (RN) Last Done: 10/08/22 15:56 Coding Level of Care Code 23532 INP/OBS DISCH >30 MIN Diagnoses Chest pain R07.9 Hypertension I10 Abnormal ECG R94.31
--- NOTE | 2022-10-08 16:49 | Cardiology Progress Note ---
Date of Service October 08, 2022 Assessment & Plan (1) ACS (acute coronary syndrome): Plan: Post PCI to occluded D2 and mid LAD stenosis 2. Mild nonculprit mid RCA, mid LCx disease 3. Low normal LV functionEF 45 to 50%, mid septal hypokinesis, mid to distal anterolateral hypokinesis. 4. Dyslipidemia LDL 208 5. Tobacco abuse Chest pain-free, troponin peaked. Hemodynamically and electrically stable. No access site complications. From a cardiac standpoint okay with discharge today. Home on DAPT with aspirin, clopidogrel for at least 1 year. Continue current statin, metoprolol. With mild KATHY post cath will hold off on starting ARB, likely started as an o utpatient. Discussed smoking cessation and she recently got nicotine patches. Discussed dietary modification (works at a [employer]). We will discuss cardiac rehab further at follow-up. Follow-up with me in 1 to 2 weeks. Admission and Anticipated Discharge Date Admission Date: October 07, 2022 Subjective Patient feeling well today. Denies any chest pain, shortness of breath. Had some of her usual back pain overnight but otherwise no new complaints. Telemetry reviewedsinus rhythm Review of Systems Review of Systems: All systems reviewed & are unremarkable except as noted in HPI & below Physical Exam Physical Exam: General: Comfortable HEENT: Sclerae anicteric Lungs: Clear to auscultation bilaterally, no crackles or wheezes Cardiac: Regular rate and rhythm, no murmurs. Vascular: Right radial artery access site with no ecchymosis, hematoma. Distal pulse and sensation intact. Abdomen: Soft, nontender Extremities: Well perfused, no peripheral edema Neuro: Nonfocal Psych: Alert orient x3, normal affect and mood Results & Data Vital Signs (Past 12 Hours) Vital Signs Temp Pulse Pulse Resp BP Pulse Ox O2 Del Method 10/08/22 15:56 98.8 F 80 18 133/82 97 10/08/22 15:42 98.8 F 80 18 133/82 97 Room Air 10/08/22 15:28 81 10/08/22 11:52 98.2 F 80 18 119/79 98 Room Air 10/08/22 08:00 125 H 10/08/22 08:11 97.7 F 87 18 144/92 H 97 Room Air PG Care Time/CCT Total # of Minutes Spent Total Time Spent with Patient: Total time spent is greater than 50% in coordination of care (as documented) at patient's floor/unit and/or counseling patient: Coding Level of Care Code 30292 SUB INP/OBS CARE 235MIN Diagnoses ACS (acute coronary syndrome) I24.9
--- NOTE | 2022-10-09 21:51 | Electrocardiogram Report ---
Test Reason : Blood Pressure : / mmHG Vent. Rate : 090 BPM Atrial Rate : 090 BPM P-R Int : 134 ms QRS Dur : 078 ms QT Int : 392 ms P-R-T Axes : 076 022 089 degrees QTc Int : 479 ms Normal sinus rhythm Septal infarct , age undetermined T wave abnormality, consider lateral ischemia ST elevation, consider lateral injury pattern Nonspecific ST abnormality Abnormal ECG When compared with ECG of 24-JUL-2021 09:31, Vent. rate has increased BY 38 BPM Septal infarct is now Present ST now depressed in Inferior leads QT has lengthened ST elevation now present in Lateral leads T wave inversion now evident in Lateral leads Confirmed by Buddy Braxton ([id number]) on 10/09/2022 9:51:07 PM Referred By: Confirmed By:Buddy Braxton
--- NOTE | 2022-10-09 22:30 | Electrocardiogram Report ---
Test Reason : Blood Pressure : / mmHG Vent. Rate : 087 BPM Atrial Rate : 087 BPM P-R Int : 132 ms QRS Dur : 076 ms QT Int : 402 ms P-R-T Axes : 066 034 098 degrees QTc Int : 483 ms Normal sinus rhythm T wave abnormality, consider lateral ischemia ST elevation, consider lateral injury pattern Prolonged QT Abnormal ECG When compared with ECG of 07-OCT-2022 09:30, Criteria for Septal infarct are no longer Present Confirmed by Buddy Braxton ([id number]) on 10/09/2022 10:29:55 PM Referred By: REFERRED SELF Confirmed By:Buddy Braxton
--- NOTE | 2022-10-10 05:53 | Electrocardiogram Report ---
Test Reason : Blood Pressure : / mmHG Vent. Rate : 098 BPM Atrial Rate : 098 BPM P-R Int : 132 ms QRS Dur : 080 ms QT Int : 388 ms P-R-T Axes : 070 063 094 degrees QTc Int : 495 ms Normal sinus rhythm Nonspecific ST abnormality ST elevation, consider lateral injury T wave abnormality, consider lateral ischemia Prolonged QT Abnormal ECG When compared with ECG of 07-OCT-2022 16:18, No significant change was found Confirmed by Buddy Braxton ([id number]) on 10/10/2022 5:53:13 AM Referred By: REFERRED SELF Confirmed By:Buddy Braxton
== END 2022-10-08 17:48 | disposition home or self-care (01) | DRG 247 ==
LOC: ED 09:22 → CC 10:42 → INTOOBSV 10:48 → 4W 10:48 → CC 11:03

== ENCOUNTER 2024-11-11 19:06 | Inpatient (IN) ==
[2024-11-11] MEDS: ASPIRIN CHEW 324 MG PO STA (19:18)
--- NOTE | 2024-11-11 19:32 | XRay Report ---
Chest radiograph, one view History: Chest pain Comparison: None Findings: Single AP view of the chest performed. No focal consolidation or pleural effusion. No pneumothorax. The cardiomediastinal silhouette is within normal limits. Normal pulmonary vascularity. No evidence for lymphadenopathy. No visualized bony or soft tissue abnormality. Impression: Normal chest radiograph Electronically signed by Balwinder Lou 11-11-2024 7:32 PM
--- NOTE | 2024-11-11 19:54 | Emergency Department Note ---
History of Present Illness General Chief Complaint: Chest Pain Stated Complaint: SOB, CHEST PAINS Time Seen by Provider: 11/11/24 19:11 History of Present Illness Provider Complaint: chest pain Onset (ago): day(s) (1.5) Onset: during exertion Pain Location: left chest Pain Radiation: LUE Severity: mild Maximum Pain Intensity: 10 Current Pain Intensity: 3 Quality: + aching and + heaviness Relieved By: + rest Exacerbated By: + exertion Context: no recent illness, no recent surgery, no recent immobilization, no recent travel, no trauma/injury, no new medications or no history of DVT/PE Associated symptoms: + dyspnea; no nausea, no syncope, no palpitations, no fever, no cough or no leg swelling Related Data On Oral Contraceptives: No Home Medications Medication Instructions Recorded Confirmed Type aspirin 81 mg tablet,delayed 81 mg PO QAM #90 tabs 10/08/22 11/11/24 Rx release lisinopril 20 mg tablet 20 mg PO BID #180 tabs 05/03/24 11/11/24 Rx nitroglycerin 0.4 mg sublingual 0.4 mg sublingual Q5M PRN chest 05/03/24 11/11/24 Rx tablet pain #20 tabs baclofen 10 mg tablet 10 mg PO BID PRN muscle spasm #60 08/06/24 11/11/24 Rx tabs pantoprazole 20 mg tablet,delayed 20 mg PO DAILY PRN 08/06/24 11/11/24 History release (Protonix) HEARTBURN/INDIGESTION amlodipine 5 mg tablet 5 mg PO BID 11/11/24 11/11/24 History clopidogrel 75 mg tablet (Plavix) 75 mg PO HS 11/11/24 11/11/24 History metoprolol succinate 50 mg 50 mg PO HS 11/11/24 11/11/24 History tablet,extended release 24 hr Allergies Allergy/AdvReac Type Severity Reaction Status Date / Time cefazolin Allergy Severe Severe Verified 11/11/24 21:07 hives Penicillins Allergy Severe SWELLING Verified 11/11/24 21:07 ALL OVER, PURPLE BLOTCHES ALL OVER duloxetine AdvReac Severe Depression Verified 11/11/24 21:07 Past Med/Surg History Problem List (Updated 11/11/24 @ 21:15 by Cameron Solis MD) Elevated troponin (Acute) Chronic back pain Nicotine use Anxiety Dyslipidemia Presence of drug-eluting stent in anterior descending branch of left coronary artery CAD (coronary artery disease) S/P Drug Eluting Stents in D2 and Mid LAD. ACS (acute coronary syndrome) (Acute) Abnormal ECG (Acute) Hypertension (Chronic) Chest pain (Acute) Chest pain (Acute) Medical History Hypertension Surgical History Status post cholecystectomy History of sinus surgery x3 History of tympanostomy x11 History of partial hysterectomy Status post section x4 Family History Mother Myocardial infarction Father Myocardial infarction Other Family history non-contributory Denies family history of Ovarian cancer Prostate cancer Breast cancer Colorectal cancer Social History Smoking Status: Current every day smoker Tobacco Type: Cigarettes Age Started Using Tobacco: 18; packs per day: 0.75; Second Hand Exposure: Yes; Do You Dip or Chew Tobacco: No; Hx Alcohol Use: No Hx Substance Use: No Preferred Language: Beninese Communication Ability: Effective Visual Impairment: No Limitations Hearing Ability: Normal Consulting Services Manager Required: No Beliefs That Will Affect Care: None marital status: Single Current Living Situation: Family current occupation: [employer] Feels Safe at Home: Yes Diet: low salt caffeine: Yes during the past year weight has: remained stable Dental Care, Regularly: No Physical Activity Frequency: Daily Seatbelt Use: always Sunscreen Use: Yes Assistive Devices: None Physical Exam Vital Signs Vital Signs - 24 hr 11/11/24 19:09 11/11/24 19:11 11/11/24 19:14 Temperature 36.8 C Temperature Source Temporal Artery Scan Pulse Rate 94 H 97 H Pulse Rate [Right Finger] Respiratory Rate 18 Respiratory Effort / Characteristics Non-Labored Spontaneous Respiratory Depth Normal Respiratory Pattern Regular Blood Pressure 199/98 H Blood Pressure [Right Arm] Blood Pressure Mean 131 Blood Pressure Mean [Right Arm] Blood Pressure Position Sitting Pulse Oximetry 98 98 Oxygen Delivery Method Room Air Room Air Sepsis Recent Fever Within 48 Hours No Sepsis New/Unexplained Change in Mental Status N/A Sepsis Action Taken by Nursing No Action Required 11/11/24 19:16 11/11/24 20:55 Temperature Temperature Source Pulse Rate Pulse Rate [Right Finger] 75 Respiratory Rate 20 Respiratory Effort / Characteristics Non-Labored Spontaneous Respiratory Depth Normal Respiratory Pattern Blood Pressure Blood Pressure [Right Arm] 167/92 H Blood Pressure Mean Blood Pressure Mean [Right Arm] 117 Blood Pressure Position Pulse Oximetry 98 97 Oxygen Delivery Method Room Air Room Air Sepsis Recent Fever Within 48 Hours Sepsis New/Unexplained Change in Mental Status Sepsis Action Taken by Nursing Physical Exam GENERAL: oriented to person, place, and time. appears well-developed and well- nourished. HENT: Exam performed. - Head: Normocephalic and atraumatic. EYES: Conjunctivae and EOM are normal. Right eye exhibits no discharge. Left eye exhibits no discharge. No scleral icterus. NECK: Normal range of motion. Neck supple. No JVD present. CV: Normal rate, regular rhythm, normal heart sounds and intact distal pulses. There is no peripheral edema. Palpable radial pulses bue. PULM/CHEST: Effort normal and breath sounds normal. No respiratory distress. No stridor. no wheezes. no rales. ABD: The abdomen is soft. There is no tenderness. NEURO: Motor and sensation grossly intact. SKIN: Skin is warm and dry. He is not diaphoretic. PSYCH: normal mood and affect. Behavior is normal. Judgment and thought content normal. Course Course 1910: The patient was evaluated in room C4. A complete history and physical exam was performed Cardiac monitoring: An order was placed for continuous cardiac monitoring. The monitor shows a rate of 90 with sinus rhythm interpreted by la 2044: Vital signs stable. Patient reports her chest pain is not present while she is resting. Patient asking for nicotine patch. Labs and imaging are unremarkable with exception of mildly elevated high-sensitivity troponin of 86.5. Discussed the case with Dr. Huerta on-call [facility] in the cardiology. She recommends holding off on heparinization at this time and to trend troponins. Patient will be admitted to the [facility] hospitalist team. Administered Medications Discontinued Medications Aspirin (Aspirin Chew 324 Mg) 324 mg PO NOW STA Stop: 11/11/24 19:12 Last Admin: 11/11/24 19:18 Dose: 324 mg Documented By: ANAHY Medical Decision Making Medical Records Attestation: I reviewed the patient's medical records. Medical records narrative: Patient had a cardiac catheterization performed by Dr. Moore in September 2022. Patient had 100% occlusion of her D2 at the ostium. Patient had 2 stents placed at that time. Her current circumflex showed 3040% mid segment stenosis and a proximal medium OM 2 with 30% stenosis. RCA was dominant medium caliber with 30 to 40% mid segment focal stenosis. Left main shows normal caliber without any significant disease. Laboratory Data Attestation: I reviewed the patient's lab results. 11/11/24 19:23 11/11/24 19:23 Labs: Lab Results 11/11/24 Range/Units 19:23 WBC 11.43 H (4.8-10.8) K/ul RBC 3.95 L (4.20-5.40) M/uL Hgb 12.3 (12.0-16.0) g/dl Hct 36.4 L (37.0-47.0) % MCV 92.2 (80.0-100.0) fL MCH 31.1 (25.0-34.0) pg MCHC 33.8 (32.0-36.0) g/dL RDW Std Deviation 42.2 (36.4-46.3) fL RDW Coeff of Evert 12.5 (11.5-14.5) % Plt Count 298 (130-400) K/uL MPV 11.4 (9.4-12.4) fL Immature Gran % (Auto) 0.3 % Neut % (Auto) 59.0 % Lymph % (Auto) 31.0 % [place] % (Auto) 7.5 % Eos % (Auto) 1.6 % Baso % (Auto) 0.6 % Neut # (Auto) 6.74 H (1.40-6.50) K/uL Lymph # (Auto) 3.54 H (1.20-3.40) K/uL [place] # (Auto) 0.86 H (0.11-0.59) K/uL Eos # (Auto) 0.18 (0.00-0.50) K/uL Baso # (Auto) 0.07 (0.00-0.20) K/uL Immature Gran # (Auto) 0.04 (0.01-0.20) K/uL PT 10.5 (9.0-12.0) Seconds INR 1.0 (0.9-1.1) APTT 28 (21-31) Seconds PTT Ratio 1.0 Sodium 139 (136-145) mmol/L Potassium 3.5 (3.5-5.1) mmol/L Chloride 105 (98-107) mmol/L Carbon Dioxide 24 (21-32) mmol/L Anion Gap 10 (3-11) BUN 24 H (6-23) mg/dl Creatinine 1.16 (0.6-1.2) mg/dl Est Cr Clr Drug Dosing 43.4 ml/min eGFR 55.68 BUN/Creatinine Ratio 20.7 H (10-20) Glucose 99 (70-99(Fasting)) mg/dl Calcium 9.6 (8.6-10.3) mg/dl Troponin I High Sens 86.5 H* (0-14) pg/ml Lipase 15 (11-82) U/L Imaging Data Chest x-ray: Attestation: I personally reviewed and interpreted this imaging study as follows: My impression: Chest x-ray negative. Airway clear. No pneumothorax. No consolidation. No cardiomegaly or cephalization.. No free air under the diaphragm. No fractures of the skeletal structures. Radiologist's impression: Chest X-Ray 11/11/24 19:11 Chest radiograph, one view History: Chest pain Comparison: None Findings: Single AP view of the chest performed. No focal consolidation or pleural effusion. No pneumothorax. The cardiomediastinal silhouette is within normal limits. Normal pulmonary vascularity. No evidence for lymphadenopathy. No visualized bony or soft tissue abnormality. Impression: Normal chest radiograph Electronically signed by Balwinder Lou 11-11-2024 7:32 PM ECG Data Attestation: I personally reviewed and interpreted this ECG as follows: Rate (beats per minute): 95 Rhythm: normal sinus Findings: no ST depression, no ST elevation or no prolonged QT MDM Narrative 191: The patient was evaluated in room C4. A complete history and physical exam was performed Cardiac monitoring: An order was placed for continuous cardiac monitoring. The monitor shows a rate of 90 with sinus rhythm interpreted by me 2044: Vital signs stable. Patient reports her chest pain is not present while she is resting. Patient asking for nicotine patch. Labs and imaging are unremarkable with exception of mildly elevated high-sensitivity troponin of 86.5. Discussed the case with Dr. Huerta on-call [facility] in the cardiology. She recommends holding off on heparinization at this time and to trend troponins. Patient will be admitted to the [facility] hospitalist team. Impression & Plan Chest pain, Elevated troponin Discharge Plan Visit Data Chief Complaint: Chest Pain Stated Complaint: SOB, CHEST PAINS ED Provider: Cameron Solis Discharge Problem: Chest pain, Elevated troponin Patient Disposition: Admitted As Inpatient Condition: Fair Forms Stand Alone Forms: My [facility] Prescriptions Prescriptions: No Action pantoprazole [Protonix] 20 mg tablet,delayed release (DR/EC) 20 mg PO DAILY PRN (Reason: HEARTBURN/INDIGESTION) baclofen 10 mg tablet 10 mg PO BID PRN (Reason: muscle spasm) Qty: 60 1RF lisinopril 20 mg tablet 20 mg PO BID Qty: 180 3RF nitroglycerin 0.4 mg tablet, sublingual 0.4 mg sublingual Q5M PRN (Reason: chest pain) Qty: 20 3RF Rx Instructions: do not exceed 3 doses per episode aspirin 81 mg Tablet,Delayed Release (Dr/Ec) 81 mg PO QAM Qty: 90 3RF metoprolol succinate 50 mg tablet extended release 24 hr 50 mg PO HS clopidogrel [Plavix] 75 mg tablet 75 mg PO HS amlodipine 5 mg tablet 5 mg PO BID Referrals Referrals: Robert Calderon DO [Primary Care Provider] -
[2024-11-11 19:58] LABS: Hematocrit (blood only) 36.4 % (37.0-47.0); Hemoglobin 12.3 g/dl (12.0-16.0); Immature Granulocytes # (auto) 0.04 K/uL (0.01-0.20); Immature Granulocytes % (auto) 0.3 %; Mean Corpuscular Hemoglobin 31.1 pg (25.0-34.0); Mean Corpuscular Volume 92.2 fL (80.0-100.0); Platelet Count 298 K/uL (130-400); RDW Standard Deviation 42.2 fL (36.4-46.3); Red Blood Count 3.95 M/uL (4.20-5.40); White Blood Count 11.43 K/ul (4.8-10.8)
[2024-11-11 20:15] LABS: Anion Gap 10.0 (3-11); Blood Urea Nitrogen 24.0 mg/dl (6-23); Calcium 9.6 mg/dl (8.6-10.3); Carbon Dioxide 24.0 mmol/L (21-32); Chloride 105.0 mmol/L (98-107); Creatinine Clr Calc Pharmacy 43.4 ml/min; Glucose 99.0 mg/dl (70-99(Fasting)); Lipase 15.0 U/L (11-82); Potassium 3.5 mmol/L (3.5-5.1); Sodium 139.0 mmol/L (136-145)
[2024-11-11 20:37] LABS: INR 1.0 (0.9-1.1); Partial Thromboplastin Time 28 Seconds (21-31); Prothrombin Time 10.5 Seconds (9.0-12.0)
--- NOTE | 2024-11-11 22:50 | History & Physical Report ---
Date of Service November 11, 2024 Assessment & Plan (1) Chest pain: (2) Hypertension: (3) Dyslipidemia: (4) CAD (coronary artery disease): Plan 54yo female with history of HTN, HLP, Known CAD s/p WILLIAM to D2 and LAD in September 2022 presenting with multiple episodes of exertional chest discomfort, palpitations occurring over the last several days. #Chest pain/Known CAD s/p stenting in September 2022 - EKG with no acute ischemic changes. Troponin is mildly elevated 86.5 --> 108.7 -Observation to PCU -Trend troponin to peak -Check 2D echo -Continue home medications - ASA 81mg daily, Plavix 75mg daily, Metoprolol 50mg po qHS, Lisinopril 20mg po BID -Hold Amlodipine for now -Nitro PRN chest pain -EKG with chest pain -Cardiology consultation appreciated #Hypertension -Continue Metoprolol, Lisinopril -Holding Amlodipine for now -Monitor #Hyperlipidemia -Patient not able to tolerate statins #Encourage smoking cessation History of Present Illness Chief Complaint: chest pain Primary Care Provider: DO Jessika Major Wellington is a pleasant 54yo female with history of CAD s/p WILLIAM to D2 and LAD in September 2022, HTN, HLP and ICM (EF 55% per stress echo 03/2023) presenting with 1.5 days of chest pain. 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 Over the last several days she has been experiencing significant substernal chest discomfort and heartburn symptoms as well as occasionally "seeing stars". Patient went camping this weekend and was trying to unload some chairs from the truck when she developed some significant gas, pain into her left chest and shoulder and palpitations. Later in the day she was out to eat with her family when she developed some very severe chest discomfort on the left side with palpitations. Today she was at a baseball game with her family and she developed severe chest pain with mild diaphoresis and nausea. She took almost an entire bottle of Pepto Bismol with no relief in her symptoms so she came to the ER. Symptoms lasted approximately 2 hours. Patient is active at baseline. Denies exertional chest discomfort prior to these episodes. No pain at rest but patient endorses significant left sided chest pain with ambulation over the last several days. In the ER she is afebrile, HD stable, Chest Pain free ER Course: ASA 324mg Allergies Allergy/AdvReac Type Severity Reaction Status Date / Time cefazolin Allergy Severe Severe Verified 11/11/24 21:07 hives Penicillins Allergy Severe SWELLING Verified 11/11/24 21:07 ALL OVER, PURPLE BLOTCHES ALL OVER duloxetine AdvReac Severe Depression Verified 11/11/24 21:07 Home Medications Medication Instructions Recorded Confirmed Type aspirin 81 mg tablet,delayed 81 mg PO QAM #90 tabs 10/08/22 11/11/24 Rx release lisinopril 20 mg tablet 20 mg PO BID #180 tabs 05/03/24 11/11/24 Rx nitroglycerin 0.4 mg sublingual 0.4 mg sublingual Q5M PRN chest 05/03/24 11/11/24 Rx tablet pain #20 tabs baclofen 10 mg tablet 10 mg PO BID PRN muscle spasm #60 08/06/24 11/11/24 Rx tabs pantoprazole 20 mg tablet,delayed 20 mg PO DAILY PRN 08/06/24 11/11/24 History release (Protonix) HEARTBURN/INDIGESTION amlodipine 5 mg tablet 5 mg PO BID 11/11/24 11/11/24 History clopidogrel 75 mg tablet (Plavix) 75 mg PO HS 11/11/24 11/11/24 History metoprolol succinate 50 mg 50 mg PO HS 11/11/24 11/11/24 History tablet,extended release 24 hr Past Med/Surg History Problem List Elevated troponin (Acute) Chronic back pain Nicotine use Anxiety Dyslipidemia Presence of drug-eluting stent in anterior descending branch of left coronary artery CAD (coronary artery disease) S/P Drug Eluting Stents in D2 and Mid LAD. ACS (acute coronary syndrome) (Acute) Abnormal ECG (Acute) Hypertension (Chronic) Chest pain (Acute) Chest pain (Acute) Medical History Hypertension Surgical History Status post cholecystectomy History of sinus surgery x3 History of tympanostomy x11 History of partial hysterectomy Status post section x4 Family History Mother Myocardial infarction Father Myocardial infarction Other Family history non-contributory Denies family history of Ovarian cancer Prostate cancer Breast cancer Colorectal cancer Social History Smoking Status: Current every day smoker Tobacco Type: Cigarettes Age Started Using Tobacco: 18; packs per day: 0.75; Cigarettes Per Day: 1 pack/day; Second Hand Exposure: Yes; Do You Dip or Chew Tobacco: No; Hx Alcohol Use: No Hx Substance Use: No Preferred Language: Tunisian Communication Ability: Effective Visual Impairment: No Limitations Hearing Ability: Normal Workday Consultant Required: No Beliefs That Will Affect Care: None marital status: Single Current Living Situation: Family current occupation: [employer] Feels Safe at Home: Yes Safety Concerns: Feels Safe At This Time Diet: low salt caffeine: Yes during the past year weight has: remained stable Dental Care, Regularly: No Physical Activity Frequency: Daily Seatbelt Use: always Sunscreen Use: Yes Assistive Devices: None Review of Systems Review of Systems: All systems reviewed & are unremarkable except as noted in HPI & below Physical Exam Physical Exam: General: patient resting comfortably, NAD, non-toxic in appearance, AA&O x 4 Skin: warm, dry, intact, no rashes or lesions HEENT: NC/AT, PERRL, EOMI, anicteric sclera, conjunctiva without injection, external ear normal to inspection and nontender, nares patent, moist mucus membranes, dentition intact, no oropharyngeal lesions, neck supple, trachea midline, no LAD, no thyromegaly, no JVD Heart: +S1/S2, regular, no m/r/g, no reproducible chest wall pain or epigastric pain Lungs: equal air entry bilaterally, no rales/rhonchi/wheezes Abd: +BS, soft, NT/ND, no masses/organomegaly/ascites Ext: warm, 2+ pulses in UE/LE bilaterally, no clubbing/cyanosis or edema Neuro: nonfocal, patient AA&O x 4, speech intact, no facial droop, moving all extremities on command with equal strength 5/5 Results & Data Results & Data Vital Signs (Past 12 Hours) Vital Signs Temp Pulse Pulse Resp BP BP Pulse Ox 11/11/24 22:00 72 20 144/88 H 96 11/11/24 20:55 75 20 167/92 H 97 11/11/24 19:16 98 11/11/24 19:14 97 H 11/11/24 19:11 98 11/11/24 19:09 36.8 C 94 H 18 199/98 H 98 O2 Del Method 11/11/24 22:00 Room Air 11/11/24 20:55 Room Air 11/11/24 19:16 Room Air 11/11/24 19:14 11/11/24 19:11 Room Air 11/11/24 19:09 Room Air Laboratory Results Laboratory Results WBC 11.43 K/ul (4.8-10.8) H 11/11/24 19:23 RBC 3.95 M/uL (4.20-5.40) L 11/11/24 19:23 Hgb 12.3 g/dl (12.0-16.0) 11/11/24 19:23 Hct 36.4 % (37.0-47.0) L 11/11/24 19:23 MCV 92.2 fL (80.0-100.0) 11/11/24 19:23 MCH 31.1 pg (25.0-34.0) 11/11/24 19: MCHC 33.8 g/dL (32.0-36.0) 11/11/24 19:23 RDW Std Deviation 42.2 fL (36.4-46.3) 11/11/24 19:23 RDW Coeff of Evert 12.5 % (11.5-14.5) 11/11/24 19:23 Plt Count 298 K/uL (130-400) 11/11/24 19:23 MPV 11.4 fL (9.4-12.4) 11/11/24 19:23 Immature Gran % (Auto) 0.3 % 11/11/24 19:23 Neut % (Auto) 59.0 % 11/11/24 19:23 Lymph % (Auto) 31.0 % 11/11/24 19:23 [place] % (Auto) 7.5 % 11/11/24 19:23 Eos % (Auto) 1.6 % 11/11/24 19:23 Baso % (Auto) 0.6 % 11/11/24 19:23 Neut # (Auto) 6.74 K/uL (1.40-6.50) H 11/11/24 19:23 Lymph # (Auto) 3.54 K/uL (1.20-3.40) H 11/11/24 19:23 [place] # (Auto) 0.86 K/uL (0.11-0.59) H 11/11/24 19:23 Eos # (Auto) 0.18 K/uL (0.00-0.50) 11/11/24 19:23 Baso # (Auto) 0.07 K/uL (0.00-0.20) 11/11/24 19:23 Immature Gran # (Auto) 0.04 K/uL (0.01-0.20) 11/11/24 19:23 PT 10.5 Seconds (9.0-12.0) 11/11/24 19:23 INR 1.0 (0.9-1.1) 11/11/24 19:23 APTT 28 Seconds (21-31) 11/11/24 19:23 PTT Ratio 1.0 11/11/24 19:23 Sodium 139 mmol/L (136-145) 11/11/24 19:23 Potassium 3.5 mmol/L (3.5-5.1) 11/11/24 19:23 Chloride 105 mmol/L (98-107) 11/11/24 19:23 Carbon Dioxide 24 mmol/L (21-32) 11/11/24 19:23 Anion Gap 10 (3-11) 11/11/24 19:23 BUN 24 mg/dl (6-23) H 11/11/24 19:23 Creatinine 1.16 mg/dl (0.6-1.2) 11/11/24 19:23 Est Cr Clr Drug Dosing 43.4 ml/min 11/11/24 19:23 eGFR 55.68 11/11/24 19:23 BUN/Creatinine Ratio 20.7 (10-20) H 11/11/24 19:23 Glucose 99 mg/dl (70-99(Fasting)) 11/11/24 19:23 Calcium 9.6 mg/dl (8.6-10.3) 11/11/24 19:23 Magnesium 2.0 mg/dl (1.7-2.4) 11/11/24 21:02 Troponin I High Sens 108.7 pg/ml (0-14) H* D 11/11/24 21:02 Lipase 15 U/L (11-82) 11/11/24 19:23 Impressions Chest X-Ray 11/11/24 19:11 Chest radiograph, one view History: Chest pain Comparison: None Findings: Single AP view of the chest performed. No focal consolidation or pleural effusion. No pneumothorax. The cardiomediastinal silhouette is within normal limits. Normal pulmonary vascularity. No evidence for lymphadenopathy. No visualized bony or soft tissue abnormality. Impression: Normal chest radiograph Electronically signed by Balwinder Lou 11-11-2024 7:32 PM ECG Additional Comments: EKG with NSR, no acute ischemic changes Code Status & VTE Plan VTE Prophylaxis Plan VTE Prophylaxis will be ordered: Yes PG Care Time/CCT Total # of Minutes Spent Total Time Spent with Patient: Total time spent is greater than 50% in coordination of care (as documented) at patient's floor/unit and/or counseling patient: Coding Level of Care Code 06908 INT INP/OBS CARE 3/75MIN Diagnoses Chest pain R07.9 Hypertension, unspecified type I10 Hypertension type: unspecified Dyslipidemia E78.5 Coronary artery disease involving [place] coronary artery of [place] heart without angina pectoris I25.10 Coronary Disease-Associated Artery/Lesion type: [place] artery [place] vs. transplanted heart: [place] heart Associated angina: without angina (2) Hypertension Hypertension type: unspecified Qualified Code(s): I10 - Essential (primary) hypertension (4) CAD (coronary artery disease) Coronary Disease-Associated Artery/Lesion type: [place] artery [place] vs. tr ansplanted heart: [place] heart Associated angina: without angina Qualified Code(s): I25.10 - Atherosclerotic heart disease of [place] coronary artery without angina pectoris
[2024-11-11] MEDS ORDERED: NITROGLYCERIN SL 0.4 MG/TAB TAB SL PRN (23:36)
[2024-11-11] MEDS ORDERED: ONDANSETRON INJ 2 MG/ML 2 ML VIAL IV PRN (23:36)
[2024-11-11] MEDS ORDERED: BACLOFEN 10 MG TAB PO PRN (23:36)
[2024-11-11] MEDS ORDERED: DOCUSATE SODIUM 100 MG CAP PO PRN (23:36)
[2024-11-12 00:39] LABS: Magnesium 2.0 mg/dl (1.7-2.4)
[2024-11-12 06:40] LABS: Hematocrit (blood only) 36.4 % (37.0-47.0); Hemoglobin 12.2 g/dl (12.0-16.0); Mean Corpuscular Hemoglobin 31.4 pg (25.0-34.0); Mean Corpuscular Volume 93.6 fL (80.0-100.0); Platelet Count 291 K/uL (130-400); RDW Standard Deviation 43.5 fL (36.4-46.3); Red Blood Count 3.89 M/uL (4.20-5.40); White Blood Count 11.74 K/ul (4.8-10.8)
[2024-11-12 06:57] LABS: Anion Gap 8.0 (3-11); Blood Urea Nitrogen 26.0 mg/dl (6-23); Calcium 9.1 mg/dl (8.6-10.3); Carbon Dioxide 25.0 mmol/L (21-32); Chloride 110.0 mmol/L (98-107); Creatinine Clr Calc Pharmacy 47.0 ml/min; Glucose 85.0 mg/dl (70-99(Fasting)); Potassium 3.6 mmol/L (3.5-5.1); Sodium 143.0 mmol/L (136-145)
[2024-11-12] MEDS: ASPIRIN 81 MG ECTAB PO SCH (08:10)
[2024-11-12] MEDS: NICOTINE 14 MG/24 HR PATCH TD SCH (08:10)
[2024-11-12] MEDS: REMOVE NICODERM PATCH SCH (08:10)
[2024-11-12] MEDS ORDERED: PNEUMOCOCCAL VACCINE (PCV20) 20-VAL CONJ-DIP CRM/PF 0.5 ML SYR IM ONE (09:00)
--- NOTE | 2024-11-12 11:13 | Electrocardiogram Report ---
Test Reason : Blood Pressure : */* mmHG Vent. Rate : 95 BPM Atrial Rate : 95 BPM P-R Int : 132 ms QRS Dur : 84 ms QT Int : 360 ms P-R-T Axes : 67 21 51 degrees QTcB Int : 452 ms Normal sinus rhythm Normal ECG When compared with ECG of 02-Jun-2023 09:50, (unconfirmed) Vent. rate has increased by 35 bpm Criteria for Septal infarct are no longer Present Confirmed by Minor Rossi ([id number]) on 11/12/2024 11:13:17 AM Referred By: REFERRED SELF Confirmed By: Minor Rossi
[2024-11-12] MEDS: ACETAMINOPHEN 325 MG TAB PO PRN (11:55)
--- NOTE | 2024-11-12 13:57 | Pre Anesthesia Assessment ---
Date of Service November 12, 2024 Pre Sedation Assessment Vital Signs Temp Pulse Pulse Resp BP BP Pulse Ox 11/12/24 13:09 69 16 164/84 H 98 11/12/24 11:24 97.5 F L 66 22 116/73 95 11/12/24 07:56 75 16 127/75 95 11/12/24 07:50 77 11/12/24 03:13 98.6 F 72 17 114/67 96 11/12/24 00:34 78 11/11/24 23:48 97.9 F 78 18 131/84 99 11/11/24 23:20 74 18 120/80 97 11/11/24 23:17 74 18 120/80 97 11/11/24 23:01 68 11/11/24 22:00 72 20 144/88 H 96 11/11/24 20:55 75 20 167/92 H 97 11/11/24 19:16 98 11/11/24 19:14 97 H 11/11/24 19:11 98 11/11/24 19:09 98.2 F 94 H 18 199/98 H 98 O2 Del Method 11/12/24 13:09 Room Air 11/12/24 11:24 Room Air 11/12/24 07:56 Room Air 11/12/24 07:50 11/12/24 03:13 Room Air 11/12/24 00:34 11/11/24 23:48 Room Air 11/11/24 23:20 Room Air 11/11/24 23:17 Room Air 11/11/24 23:01 11/11/24 22:00 Room Air 11/11/24 20:55 Room Air 11/11/24 19:16 Room Air 11/11/24 19:14 11/11/24 19:11 Room Air 11/11/24 19:09 Room Air Cardiovascular RRR, no murmur, no edema Respiratory normal respiratory effort, lungs clear to auscultation Pre-Sedation Airway Assessment Smoking Status: Current every day smoker Hx Sleep Apnea: No Hx Difficult Intubation: No Short, Thick Neck: No Thyromental Distance: < 3.5 Finger Breadths Oral Cavity: + WNL Mallampati Class: I ASA: ASA2E NPO Status Date of Last Intake of Fluids: 11/11/24 Time of Last Intake of Fluids: 21:00 Date of Last Intake of Solid Food: 11/11/24 Time of Last Intake of Solid Foods: 21:00 Procedure Planning Contraindications for Sedation: none Current Medications Reviewed: Yes Notes The planned sedation has been discussed with the patient. Informed Consent was obtained. I have identified the patient, determined the appropriateness of sedation and have assessed the patient immediately prior to the procedure. All medicine(s) and interventions are by my order.
[2024-11-12] MEDS: HEPARIN (PORCINE) 1000 UNIT/ML 10 ML (CATH LAB USE ONLY) ONE (15:39)
[2024-11-12] MEDS: NITROGLYCERIN/D5W 100MCG/ML 20ML SYR ONE (15:40)
[2024-11-12] MEDS: CLOPIDOGREL BISULFATE 300 MG TAB ONE ×2 (15:40→16:45)
[2024-11-12] MEDS: niCARdipine 2,000 MCG/20 ML SYR ONE (15:40)
[2024-11-12] MEDS: MIDAZOLAM HCL 1 MG/ML 2ML VIAL ONE ×2 (15:40→15:41)
[2024-11-12] MEDS: OPTIRAY 350 ONE (15:41)
--- NOTE | 2024-11-12 15:47 | Post Anesthesia Assessment ---
Date of Service November 12, 2024 Post Sedation Assessment Vital Signs Temp Pulse Pulse Resp BP BP Pulse Ox 11/12/24 13:09 69 16 164/84 H 98 11/12/24 11:24 97.5 F L 66 22 116/73 95 11/12/24 07:56 75 16 127/75 95 11/12/24 07:50 77 11/12/24 03:13 98.6 F 72 17 114/67 96 11/12/24 00:34 78 11/11/24 23:48 97.9 F 78 18 131/84 99 11/11/24 23:20 74 18 120/80 97 11/11/24 23:17 74 18 120/80 97 11/11/24 23:01 68 11/11/24 22:00 72 20 144/88 H 96 11/11/24 20:55 75 20 167/92 H 97 11/11/24 19:16 98 11/11/24 19:14 97 H 11/11/24 19:11 98 11/11/24 19:09 98.2 F 94 H 18 199/98 H 98 O2 Del Method 11/12/24 13:09 Room Air 11/12/24 11:24 Room Air 11/12/24 07:56 Room Air 11/12/24 07:50 11/12/24 03:13 Room Air 11/12/24 00:34 11/11/24 23:48 Room Air 11/11/24 23:20 Room Air 11/11/24 23:17 Room Air 11/11/24 23:01 11/11/24 22:00 Room Air 11/11/24 20:55 Room Air 11/11/24 19:16 Room Air 11/11/24 19:14 11/11/24 19:11 Room Air 11/11/24 19:09 Room Air Recovery Score Activity: Moves 4 extremities Respiration: Deep Breath/Cough Circulation: +/-20% PreAnes Value Consciousness: Fully Awake Oxygen Saturation: O2 needed for >90% Discharge Sedation Level of Care: Fast Track Phase II
--- NOTE | 2024-11-12 15:52 | Cardiac Catheterization ---
[facility] Data: Portfolio Architect Cardiac Status Clinical evaluation leading to the procedure CAD Presenation: Non STEMI Anginal Classification: CCS IV Diagnostic Physicians Name: Balwinder Moore MD Closure Device Recommendations: PCI without planned CABG Cardiac Cath Procedure Full Procedure Date November 12, 2024 Pre-Procedure Diagnosis Pre-Procedure Diagnosis: Non STEMI AUC Score AUC Score: 8 Post-Procedure Diagnosis Post-Procedure Diagnosis: Severe CAD, Successful PCI and Normal Intracardiac Pressures Procedure(s) Performed Procedure(s) Performed: Coronary Angiography, Left Heart Cath, Drug Eluting Stent and Fractional Flow [place] [employer] Balwinder Moore MD Subassembly Assembler(s) Rohan Estimated Blood Loss Estimated Blood Loss: 25 Medication(s) Medication(s): Clopidogrel, Fentanyl, Heparin, Lidocaine 1%, Nicardipine, Nitroglycerin and Versed Summary of Findings Indication: NSTEMI Access: 6 Fr slender right radial artery Catheters: [place], [place] left 3.5, EBU 3.5 guide Findings: LM -normal caliber, no significant disease LAD -medium caliber, proximal luminal irregularities, mid segment stent widely patent without significant ISR. 50% eccentric stenosis at the bend after small D3. Distal vessel without significant disease and wraps around apex. D2 stent widely patent.. Small D3 without disease. Circumflex -medium caliber, 30% mid segment stenosis, remainder of AV groove circumflex without significant disease. Mid OM 3 with 40% stenosis. RCA -dominant, medium caliber, 98% mid segment focal stenosis, distal vessel and RPDA without significant disease. LVEDP - 15 -- PCI -- Antithrombotic therapy: Heparin, clopidogrel Procedure: RCA cannulated with [place] left 3.5 guide Pre-procedure flow JAMES 2-3 [employer] Operations Specialist 50 wire passed across lesion into distal vessel Mid RCA lesion predilated with 2.5 compliant balloon Dilated lesion stented with 3.5 x 18 mm Xience drug-eluting stent Stent post-dilated with 3.75 noncompliant balloon IC vasodilators administered for spasm Post procedure JAMES 3 flow, stent well expanded with minimal residual stenosis and no apparent cardiac complications. IFR of mid LAD Left main cannulated with EBU 3.5 guide Reyes Omni wire placed into distal LAD IFR 0.94 PCI deferred Wire removed and repeat angiography revealed no apparent complications. Arterial Closure: TR band Summary: 1. Multivessel coronary artery disease - Acute 98% mid RCA Widely patent mid LAD and second diagonal stents 50% latemid stenosis (nonobstructive by IFR 0.94). 2. Normal intracardiac filling pressure 3. Successful PCI of mid RCA with single drug-eluting stent (3.5 x 18 mm Xience; postdilated with 3.75 NC). Recommendations: To PCU for continued monitoring Loaded with clopidogrel 600 mg in Portfolio Architect Continue dual-antiplatelet therapy for at least 1 year Continue ASCVD risk factor modification with aggressive LDL reduction and smoking cessation Hemodynamics Rest Ao:: 155/88 Final Ao: 165/78 LV: 15 Recommendations Recommendations: PCI without planned CABG Radiation Exposure (mGy) 1620 Contrast (mls) 120 Anesthesia Moderate 9390-8981 Procedural Complication(s) None Disposition Portfolio Architect Holding/Recovery I attest to the content of the Intraoperative Record and any orders documented therein. Any exceptions are noted below. [facility] Card Cath Procedure Codes Cardiac Catheterization Procedure 1: Cardiovascular Cath Procedures: 82631 Coronaries and LHC (+/-LV) Procedure 2: Cardiovascular Cath Procedures: 43466 (Doppler) Pressure Wire Moderate Sedation Procedure 1: Sedation/Anesthesia: 77512 Mod Sedation by the same physician;Init15 Min Child Age 5 & Up Procedure 2: Sedation/Anesthesia: 98379 Mod Sedation by the same physician; Ea [id number] Minutes Stenting Procedure 1: Cardiovascular Stent Procedures: 98440 Perc transcatheter placement of intracoronary stent(s), with ang PG Care Time/CCT Total # of Minutes Spent Total Time Spent with Patient: Total time spent is greater than 50% in coordination of care (as documented) at patient's floor/unit and/or counseling patient:
--- NOTE | 2024-11-12 16:53 | Hospitalist Progress Note ---
"Date of Service November 12, 2024 Assessment & Plan (1) NSTEMI (non-ST elevated myocardial infarction): (2) Chest pain: (3) Hypertension: (4) Dyslipidemia: (5) CAD (coronary artery disease): Plan 54yo female with history of HTN, HLP, Known CAD s/p WILLIAM to D2 and LAD in September 2022 presenting with multiple episodes of exertional chest discomfort, palpitations occurring over the last several days. #NSTEMI | Known CAD s/p stenting in September 2022 EKG with no acute ischemic changes Troponin trend: 86 -> 108 -> 161 -> 151 2D echocardiogram completed on 11/11, results still pending Interventional cardiology consult appreciated Patient underwent a cardiac catheterization with Dr. Moore on 11/12 98% mid RCA occlusion; s/p WILLIAM x 1 Received Plavix load of 600 mg in the [place] [employer] Okay to return to PCU Continue DAPT aspirin and Plavix daily x 1 year Added Protonix 40 mg p.o. daily for stomach protection while in the hospital EKG as needed with chest pain Nitro PRN for chest pain #Left scapular pain Noted following procedure Repeat EKG at 1800 revealed NSR Suspect MSK as pain is largely reproducible on palpation Lidocaine patch application PRN #Hypertension Continue Metoprolol, Lisinopril Amlodipine initially on hold, but will plan to restart on the morning of 11/13 Monitor #Hyperlipidemia Patient reportedly not able to tolerate statins #Encourage smoking cessation Disposition: Continued stay on PCU telemetry Admission and Anticipated Discharge Date Admission Date: November 11, 2024 Supervising Physician Co-Signing Physician Notes The patient was not seen by me. The chart was reviewed. Case discussed with RAHUL Ayoub. Agree with assessment and plan Subjective Mrs. Paris is in good spirits following her cardiac catheterization. Family at bedside. Patient reports she is still having a constant, stabbing pain that is mainly affecting her left shoulder with radiation around the left flank. She rates it as a 6 out of 10 at present, but does report history of back issues. Additionally she is feeling nauseous following the procedure. She attributes her nausea to high doses of antiplatelets; denies prior history of stomach ulcers. She has not attempted to get up or move around following the procedure, but is eager to try eating some food / drinking water. ROS: Patient endorses left scapula pain, and nausea. Patient denies fever, chills, SOB, pleuritic CP, cough, vomiting, changes in urinary bowel habits, or blood in her stools. Review of Systems Review of Systems: See HPI above Physical Exam Physical Exam: General: no acute distress; pleasant affect; family at bedside; non-toxic appearing; cooperative; SpO2 98% on RA HEENT: normocephalic, atraumatic; no scleral icterus; PERRLA; vision and hearing grossly intact Neck: supple; no lymphadenopathy; trachea midline; patient is able to shrug shoulders against resistance, but this elicits pain in the left shoulder Skin: warm, dry without signs of tenting; no rashes, bruising, lesions, or erythema noted Right hand: Mildly cyanotic; radial pulse intact; radial hemostasis band in place CV: chest wall NTP; RRR; S1/S2 normal; no murmurs/rubs/gallops; pulses intact and symmetric at radial, DP, and PT Lungs: no acute respiratory distress; symmetrical chest wall expansion; clear breath sounds across all lung gann w/o adventitious sounds; no wheezing Back: Right scapula is TTP; right flank is TTP; no rashes appreciated ABD: Soft, NTP; BS present; no rebound/guarding; no distention MSK: no tics or fasciculations; no edema noted in the LEs b/l, nonerythematous; patient demonstrates ability to wiggle toes bilaterally Neuro: A&Ox3; normal mood and affect; fluent speech; no focal deficits; sensation intact and symmetric in the lower extremities bilaterally Results & Data Results & Data Vital Signs (Past 12 Hours) Vital Signs Temp Pulse Pulse Pulse Resp BP BP 11/12/24 16:45 75 18 157/88 H 11/12/24 16:30 68 138/83 11/12/24 16:15 70 18 11/12/24 15:49 73 152/79 H 11/12/24 13:09 69 16 11/12/24 11:24 36.4 C L 66 22 11/12/24 07:56 75 16 11/12/24 07:50 77 BP Pulse Ox O2 Del Method 11/12/24 16:45 98 Room Air 11/12/24 16:30 98 Room Air 11/12/24 16:15 150/83 H 98 Room Air 11/12/24 15:49 98 Room Air 11/12/24 13:09 164/84 H 98 Room Air 11/12/24 11:24 116/73 95 Room Air 11/12/24 07:56 127/75 95 Room Air 11/12/24 07:50 PG Care Time/CCT Total # of Minutes Spent Total Time Spent with Patient: Total time spent is greater than 50% in coordination of care (as documented) at patient's floor/unit and/or counseling patient: Coding [place] [address] SUB INP/OBS CARE 2/35MIN Patient Type Established Medical Decision Making Moderate Complexity Diagnoses NSTEMI (non-ST elevated myocardial infarction) I21.4 Chest pain R07.9 Hypertension, unspecified type I10 Hypertension type: unspecified Dyslipidemia E78.5 Coronary artery disease involving [place] coronary artery of [place] heart without angina pectoris I25.10 Associated angina: without angina Coronary Disease-Associated Artery/Lesion type: [place] artery [place] vs. transplanted heart: [place] heart (3) Hypertension Hypertension type: unspecified Qualified Code(s): I10 - Essential (primary) hypertension (5) CAD (coronary artery disease) Associated angina: without angina Coronary Disease-Associated Artery/Lesion type: [place] artery [place] vs. transplanted heart: [place] heart Qualified Code(s): I25.10 - Atherosclerotic heart disease of [place] coronary artery without angina pectoris"
[2024-11-12] MEDS: LIDOCAINE 5% 1 PATCH TD STA (17:55)
[2024-11-12] MEDS: METOPROLOL SUCC 50MG EXT REL TAB PO SCH (20:47)
[2024-11-12] MEDS: CLOPIDOGREL BISULFATE 75 MG TAB PO SCH (20:47)
[2024-11-12] MEDS: REMOVE LIDODERM PATCH SCH (21:00)
--- NOTE | 2024-11-12 21:48 | XCELERA ---
[id number]
--- NOTE | 2024-11-12 21:57 | Cardiology Consultation ---
Date of Consultation November 12, 2024 Assessment & Plan (1) NSTEMI (non-ST elevated myocardial infarction): 2. Preserved LV function 3. Hypertension 4. Dyslipidemia 5. Ongoing smoking Patient post successful PCI of acute severe mid RCA stenosis.. Remainder of nonculprit disease not severe. Postprocedure she is chest pain-free. No signs of apparent access site complication. Will plan to observe overnight, likely will be able to be discharged home tomorrow. Going forward will need aggressive ASCVD secondary prevention. Continue DAPT with aspirin, clopidogrel for at least 1 year. On home prior amlodipine, lisinopril, Toprol-XL LDL with above goal. States did not tolerate atorvastatin. Willing to retry rosuvastatin 10 mg daily and will add Zetia as well. We also talked about possible PCSK9 in the future. Seems motivated to stop smoking. Interested in nicotine patches on discharge History of Present Illness Attending Physician: Shyam Cain MD History of Present Illness Ms. Paris is a pleasant 54-year-old woman who was admitted with accelerating substernal chest pain, NSTEMI. She is known to me from prior ACS 09/2022 at which time had an occluded second diagonal and moderate to severe mid LAD disease treated with 2 stents (1 to diagonal 1 to LAD). Cardiac risk factors include dyslipidemia with LDL >200, hypertension and ongoing tobacco abuse. Here had mildly elevated HS TropI trended up to 160, EKG unchanged, echo today showed preserved LV function with no new wall motion abnormalities. She underwent cardiac catheterization which showed acute 98% mid RCA stenosis which was treated with single WILLIAM. Her prior stents were widely patent. Late mid LAD stenosis of 50% was nonobstructive by IFR. Allergies Allergy/AdvReac Type Severity Reaction Status Date / Time cefazolin Allergy Severe Severe Verified 11/11/24 21:07 hives Penicillins Allergy Severe SWELLING Verified 11/11/24 21:07 ALL OVER, PURPLE BLOTCHES ALL OVER duloxetine AdvReac Severe Depression Verified 11/11/24 21:07 Home Medications Medication Instructions Recorded Confirmed Type aspirin 81 mg tablet,delayed 81 mg PO QAM #90 tabs 10/08/22 11/11/24 Rx release lisinopril 20 mg tablet 20 mg PO BID #180 tabs 05/03/24 11/11/24 Rx nitroglycerin 0.4 mg sublingual 0.4 mg sublingual Q5M PRN chest 05/03/24 11/11/24 Rx tablet pain #20 tabs baclofen 10 mg tablet 10 mg PO BID PRN muscle spasm #60 08/06/24 11/11/24 Rx tabs pantoprazole 20 mg tablet,delayed 20 mg PO DAILY PRN 08/06/24 11/11/24 History release (Protonix) HEARTBURN/INDIGESTION amlodipine 5 mg tablet 5 mg PO BID 11/11/24 11/11/24 History clopidogrel 75 mg tablet (Plavix) 75 mg PO HS 11/11/24 11/11/24 History metoprolol succinate 50 mg 50 mg PO HS 11/11/24 11/11/24 History tablet,extended release 24 hr Patient History Medical History Hypertension Surgical History Status post cholecystectomy History of sinus surgery x3 History of tympanostomy x11 History of partial hysterectomy Status post section x4 Family History Mother Myocardial infarction Father Myocardial infarction Other Family history non-contributory Denies family history of Ovarian cancer Prostate cancer Breast cancer Colorectal cancer Social History Smoking Status: Current every day smoker Tobacco Type: Cigarettes Age Started Using Tobacco: 18; packs per day: 0.75; Cigarettes Per Day: 1 pack/day; Second Hand Exposure: Yes; Do You Dip or Chew Tobacco: No; Hx Alcohol Use: No Hx Substance Use: No Preferred Language: Georgian Communication Ability: Effective Visual Impairment: No Limitations Hearing Ability: Normal Rn Radiation Oncology Required: No Beliefs That Will Affect Care: None marital status: Single Current Living Situation: Family current occupation: [employer] Feels Safe at Home: Yes Safety Concerns: Feels Safe At This Time Diet: low salt caffeine: Yes during the past year weight has: remained stable Dental Care, Regularly: No Physical Activity Frequency: Daily Seatbelt Use: always Sunscreen Use: Yes Assistive Devices: None Review of Systems Review of Systems: All systems reviewed & are unremarkable except as noted in HPI & below Physical Exam Physical Exam: General: Comfortable HEENT: Sclerae anicteric Lungs: Clear to auscultation bilaterally, no crackles or wheezes Cardiac: Regular rate and rhythm, no murmurs. Vascular: Right radial artery access site with no ecchymosis, hematoma. Distal pulse and sensation intact. Abdomen: Soft, nontender Extremities: Well perfused, no peripheral edema Neuro: Nonfocal Psych: Alert orient x3, normal affect and mood Results & Data Vital Signs (Past 12 Hours) Vital Signs Temp Pulse Pulse Pulse Resp BP BP 11/12/24 19:25 98.2 F 72 18 138/87 11/12/24 18:45 73 18 150/83 H 11/12/24 17:44 67 157/91 H 11/12/24 17:15 70 147/95 H 11/12/24 16:45 75 18 157/88 H 11/12/24 16:30 68 138/83 11/12/24 16:15 70 18 11/12/24 15:49 73 152/79 H 11/12/24 13:09 69 16 11/12/24 11:24 97.5 F L 66 22 BP Pulse Ox O2 Del Method 11/12/24 19:25 97 Room Air 11/12/24 18:45 99 Room Air 11/12/24 17:44 98 Room Air 11/12/24 17:15 98 Room Air 11/12/24 16:45 98 Room Air 11/12/24 16:30 98 Room Air 11/12/24 16:15 150/83 H 98 Room Air 11/12/24 15:49 98 Room Air 11/12/24 13:09 164/84 H 98 Room Air 11/12/24 11:24 116/73 95 Room Air PG Care Time/CCT Total # of Minutes Spent Total Time Spent with Patient: Total time spent is greater than 50% in coordination of care (as documented) at patient's floor/unit and/or counseling patient: Coding Level of Care Code 93703 IN/OBS CONSULT LVL 4,60M Diagnoses NSTEMI (non-ST elevated myocardial infarction) I21.4
[2024-11-13 07:48] VITALS: RESP 16; TEMP 98.6; O2SAT 100
--- NOTE | 2024-11-13 09:52 | Discharge Summary ---
Discharge Summary Date of Service November 13, 2024 Principal Dx & Hospital Course #1 = Principal Diagnosis (1) NSTEMI (non-ST elevated myocardial infarction): (2) Chest pain: (3) Hypertension: (4) Dyslipidemia: (5) CAD (coronary artery disease): Plan #NSTEMI | Known CAD s/p stenting in September 2022 54yo female with history of HTN, HLP, Known CAD s/p WILLIAM to D2 and LAD in September 2022 presenting with multiple episodes of exertional chest discomfort, palpitations occurring over the last several days. EKG with no acute ischemic changes. Troponin peaked at 161. S/p Patient underwent a cardiac catheterization with Dr. Moore on 11/12, 98% mid RCA occlusion; s/p WILLIAM x 1. Continue DAPT aspirin and Plavix daily x 1 year - modify risk factors, restarted on cholesterol meds - rosuvastatin and zertia. Nicotine patch for smoking cessation - discussed strategies to help her success. #Left scapular pain - Noted following procedure, Suspect MSK as pain is largely reproducible on palpation and has resolved. #Hypertension - Continue Metoprolol, Lisinopril and amlodipine #Hyperlipidemia - statin restarted as above #Encourage smoking cessation Disposition: discharge to home today with cardiology follow up Notes For Next Care Provider highly motivated to quit smoking - continue to encourage Medication Changes From Visit started statin and zetia nicotine patches Admission HPI Per Admitting Provider Jessika Paris is a pleasant 54yo female with history of CAD s/p WILLIAM to D2 and LAD in September 2022, HTN, HLP and ICM (EF 55% per stress echo 03/2023) presenting with 1.5 days of chest pain. 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 Over the last several days she has been experiencing significant substernal chest discomfort and heartburn symptoms as well as occasionally "seeing stars". Patient went camping this weekend and was trying to unload some chairs from the truck when she developed some significant gas, pain into her left chest and shoulder and palpitations. Later in the day she was out to eat with her family when she developed some very severe chest discomfort on the left side with palpitations. Today she was at a baseball game with her family and she developed severe chest pain with mild diaphoresis and nausea. She took almost an entire bottle of Pepto Bismol with no relief in her symptoms so she came to the ER. Symptoms lasted approximately 2 hours. Patient is active at baseline. Denies exertional chest discomfort prior to these episodes. No pain at rest but patient endorses significant left sided chest pain with ambulation over the last several days. In the ER she is afebrile, HD stable, Chest Pain free ER Course: ASA 324mg Discharge Exam General: NAD, vitals as above, sitting on the side of bed Pulm: breathing unlabored CV: well perfused extremities: moves all extremities Discharge Plan Discharge Items Patient Disposition: Home - Self-Care Reason For Visit: EXERTIONAL CHEST PAAIN, NSTEMI Discharge Diagnosis: Heart Cath Condition on Discharge: Fair Activity: Resume your previous activity Non-emergency contact: Primary Care Provider and Home Care Specialist Call non-emergency contact if: you have any medication questions, your symptoms worsen and your temperature is above 101 Follow-up/Referrals: Balwinder Moore MD [Physician] - 11/22/24 1:45 pm (office will call for follow up ) Robert Calderon DO [Primary Care Provider] - 11/23/24 11:10 am (follow up within one week ) Diet: Heart Healthy Addtl Attending Provider Instructions: Ms. Paris, You were hospitalized after having chest pain, you were found to have occlusion of the RCA and had a stent placed by Dr. Moore 11/12. As discussed it is important to modify your risk factors to decrease your risk for further heart problems. Medication changes: - Aspirin 81mg daily and plavix for 1 year - Cholesterol medicine: rousvastatin and Zetia daily - Nitroglycerin as needed for chest pain - Nicotine patch for smoking cessation - please do not smoke while using these The cardiology office will call your for follow up. Please follow up with your PCP within one week. Instructions below for heart cath: ACTIVITY RECOMMENDATIONS: Excess manipulation of the wrist should be avoided for the next 24-48 hours. * No lifting over 2 pounds (approximately a 1/2 gallon of milk) with the utilized arm for 24 hours. * No strenuous activity such as bowling or tennis for 3 days. * Keep the site of the procedure covered with a bandage for 24 hours. *You may shower the day after the procedure. Do not take a tub bath or submerge the puncture site in water for the next 3 days. *Do not operate any motorized equipment for 3 days. SPECIAL CARE INSTRUCTIONS: The site may be slightly bruised and sore following your procedure. Should any of the following occur, contact the Dr. who performed your procedure. 1. Redness/inflammation, swelling, chills, or fever, or colored drainage at procedure site within 3-7 days after your procedure. 2. Coldness, discoloration, ongoing numbness, severe pain, or swelling. Expect mild tingling of hand and tenderness at the puncture site for up to three days. If this persists beyond three days, or other symptoms develop, notify the Dr. who performed your procedure. BLEEDING: If the procedure site on your wrist begins to bleed, do not panic 1. Place 1 or 2 fingers firmly just slightly above the insertion site to stop the bleeding. You may be able to feel your pulse as you hold pressure. 2. Lift your finger after 5 minutes to see if the bleeding has stopped. 3. Once the bleeding has stopped, gently wipe the wrist area clean with a bandage. * If the bleeding from your wrist does not stop after 10 minutes, or if there is a large amount of bleeding or spurting, call 911 (do not drive yourself to the hospital). SKIN IRRITATION: * You may experience some redness and/or swelling in the area where radiation was administered. If any skin irritation occurs, please contact your family physician. FOLLOW UP VISIT: Keep any scheduled doctor appointments. Pending Studies at Discharge: No Stand-Alone Forms: [facility], Smoking Cessation Medications and DC Order Prescriptions: New nicotine 7 mg/24 hr Patch 24 Hour 1 patch transdermal QAM Qty: 30 0RF rosuvastatin 10 mg tablet 10 mg PO DAILY Qty: 30 0RF ezetimibe [Zetia] 10 mg tablet 10 mg PO DAILY Qty: 30 0RF Continued pantoprazole [Protonix] 20 mg tablet,delayed release (DR/EC) 20 mg PO DAILY PRN (Reason: HEARTBURN/INDIGESTION) baclofen 10 mg tablet 10 mg PO BID PRN (Reason: muscle spasm) Qty: 60 1RF lisinopril 20 mg tablet 20 mg PO BID Qty: 180 3RF nitroglycerin 0.4 mg tablet, sublingual 0.4 mg sublingual Q5M PRN (Reason: chest pain) Qty: 20 3RF Rx Instructions: do not exceed 3 doses per episode aspirin 81 mg Tablet,Delayed Release (Dr/Ec) 81 mg PO QAM Qty: 90 3RF metoprolol succinate 50 mg tablet extended release 24 hr 50 mg PO HS amlodipine 5 mg tablet 5 mg PO BID Changed clopidogrel [Plavix] 75 mg tablet 75 mg PO HS Qty: 30 0RF Discharge Orders: Discharge Order (Routine); Ordered 11/13/24 Ordered By: Josie Fofana/Other Patient Handouts: Planning to Quit Smoking, Kicking the Smoking Habit, ED How to Quit Smoking Admission Data Admit Date/Time: 11/11/24 22:48 Attending Provider: Shyam Cain Admit Provider: Maren Elizabeth Primary Care Provider: Robert Calderon Other Providers: Maren Elizabeth; Stalin Sawyer; Davy Alonzo; Minor Rossi; Alberto Beckford; Vicente Vega; Ovidio Elizalde Jr; Buddy Braxton; Sarahi Ribeiro; Veronica Ac; Balwinder Moore; Balwinder Villarreal; Liz Lunsford; Adrien Johns; Shelli Pereyra; Adrien Riojas; Darwin Crisostomo; Elver Jones; Noe Clark; Kun Calero; Elkin Novak; Luz Crain Other Interventions: Discharge Summary Assessment (RN) Last Done: 11/13/24 10:00 Hospital Stay Data Consultations 11/11/24 20:40 ED Decision to Admit Stat 11/11/24 23:36 Consult Cardiology Routine Procedures Performed Operation Date: 11/12/24 13:30 Actual Procedures p Cineradiography w/Routine Exam(Left) - Balwinder Moore MD p Cath, Left with Cors and Vent - Balwinder Moore MD s Drug Eluting Stent SGl Vessel - Balwinder Moore MD Diagnostic Imagining Performed Chest X-Ray 11/11/24 19:11 Chest radiograph, one view History: Chest pain Comparison: None Findings: Single AP view of the chest performed. No focal consolidation or pleural effusion. No pneumothorax. The cardiomediastinal silhouette is within normal limits. Normal pulmonary vascularity. No evidence for lymphadenopathy. No visualized bony or soft tissue abnormality. Impression: Normal chest radiograph Electronically signed by Balwinder Lou 11-11-2024 7:32 PM Pending Results Patient Have Any Pending Studies at Discharge: No Discharge Instructions Given to Patient (Per Discharging Provider) Ms. Paris, You were hospitalized after having chest pain, you were found to have occlusion of the RCA and had a stent placed by Dr. Moore 11/12. As discussed it is important to modify your risk factors to decrease your risk for further heart problems. Medication changes: - Aspirin 81mg daily and plavix for 1 year - Cholesterol medicine: rousvastatin and Zetia daily - Nitroglycerin as needed for chest pain - Nicotine patch for smoking cessation - please do not smoke while using these The cardiology office will call your for follow up. Please follow up with your PCP within one week. Instructions below for heart cath: ACTIVITY RECOMMENDATIONS: Excess manipulation of the wrist should be avoided for the next 24-48 hours. * No lifting over 2 pounds (approximately a 1/2 gallon of milk) with the utilized arm for 24 hours. * No strenuous activity such as bowling or tennis for 3 days. * Keep the site of the procedure covered with a bandage for 24 hours. *You may shower the day after the procedure. Do not take a tub bath or submerge the puncture site in water for the next 3 days. *Do not operate any motorized equipment for 3 days. SPECIAL CARE INSTRUCTIONS: The site may be slightly bruised and sore following your procedure. Should any of the following occur, contact the DrSherita who performed your procedure. 1. Redness/inflammation, swelling, chills, or fever, or colored drainage at procedure site within 3-7 days after your procedure. 2. Coldness, discoloration, ongoing numbness, severe pain, or swelling. Expect mild tingling of hand and tenderness at the puncture site for up to three days. If this persists beyond three days, or other symptoms develop, notify the Dr. who performed your procedure. BLEEDING: If the procedure site on your wrist begins to bleed, do not panic 1. Place 1 or 2 fingers firmly just slightly above the insertion site to stop the bleeding. You may be able to feel your pulse as you hold pressure. 2. Lift your finger after 5 minutes to see if the bleeding has stopped. 3. Once the bleeding has stopped, gently wipe the wrist area clean with a bandage. * If the bleeding from your wrist does not stop after 10 minutes, or if there is a large amount of bleeding or spurting, call 911 (do not drive yourself to the hospital). SKIN IRRITATION: * You may experience some redness and/or swelling in the area where radiation was administered. If any skin irritation occurs, please contact your family physician. FOLLOW UP VISIT: Keep any scheduled doctor appointments. Total Time Total Time Spent Total Time Spent (In Minutes): Time spent day of discharge 39 minutes including direct patient care, medication reconciliation, documentation, review of labs and images, and coordination of care. Case discussed with Dr. moore Coding Level of Care Code 55462 INP/OBS DISCH >30 MIN Diagnoses NSTEMI (non-ST elevated myocardial infarction) I21.4 Chest pain R07.9 Hypertension, unspecified type I10 Hypertension type: unspecified Dyslipidemia E78.5 Coronary artery disease involving [place] coronary artery of [place] heart without angina pectoris I25.10 Associated angina: without angina Coronary Disease-Associated Artery/Lesion type: [place] artery [place] vs. transplanted heart: [place] heart
[2024-11-13 10:01] VITALS: BP 150/83; PULSE 65
--- NOTE | 2024-11-13 11:22 | Electrocardiogram Report ---
Test Reason : Blood Pressure : */* mmHG Vent. Rate : 61 BPM Atrial Rate : 61 BPM P-R Int : 156 ms QRS Dur : 88 ms QT Int : 436 ms P-R-T Axes : 69 9 11 degrees QTcB Int : 438 ms Normal sinus rhythm Normal ECG When compared with ECG of 11-Nov-2024 19:14, Vent. rate has decreased by 34 bpm T wave inversion now evident in Inferior leads Confirmed by Minor Rossi ([id number]) on 11/13/2024 11:22:04 AM Referred By: REFERRED SELF Confirmed By: Minor Rossi
--- NOTE | 2024-11-13 11:46 | Cardiology Progress Note ---
Date of Service November 13, 2024 Assessment & Plan (1) NSTEMI (non-ST elevated myocardial infarction): Plan: 2. Preserved LV function 3. Hypertension 4. Dyslipidemia 5. Ongoing smoking Patient post successful PCI of acute severe mid RCA stenosis.. Remainder of nonculprit disease not severe. Postprocedure she is chest pain-free. No signs of apparent access site complication. From a cardiac standpoint okay with discharge today. Going forward will need aggressive ASCVD secondary prevention. Continue DAPT with aspirin, clopidogrel for at least 1 year. On home prior amlodipine, lisinopril, Toprol-XL LDL significantly above goal. States did not tolerate atorvastatin. Willing to retry rosuvastatin 10 mg daily and will add Zetia as well. We also talked about possible PCSK9 in the future. Discussed dietary modification Seems motivated to stop smoking. Interested in nicotine patches on discharge Interested in cardiac rehab. Follow-up with me in 2 weeks. Admission and Anticipated Discharge Date Admission Date: November 11, 2024 Subjective Feeling well this morning. Slept well. No other new concerns. Telemetry reviewedno events Review of Systems Review of Systems: All systems reviewed & are unremarkable except as noted in HPI & below Physical Exam Physical Exam: General: Comfortable HEENT: Sclerae anicteric Lungs: Clear to auscultation bilaterally, no crackles or wheezes Cardiac: Regular rate and rhythm, no murmurs. Vascular: Right radial artery access site with no ecchymosis, hematoma. Distal pulse and sensation intact. Abdomen: Soft, nontender Extremities: Well perfused, no peripheral edema Neuro: Nonfocal Psych: Alert orient x3, normal affect and mood Results & Data Vital Signs (Past 12 Hours) Vital Signs Temp Pulse Pulse Pulse Resp BP BP 11/13/24 10:00 98.6 F 70 65 16 122/75 150/83 H 11/13/24 09:15 60 11/13/24 07:47 98.6 F 70 16 122/75 11/13/24 03:04 97.7 F 65 18 122/78 Pulse Ox O2 Del Method 11/13/24 10:00 100 11/13/24 09:15 11/13/24 07:47 100 Room Air 11/13/24 03:04 96 Room Air PG Care Time/CCT Total # of Minutes Spent Total Time Spent with Patient: Total time spent is greater than 50% in coordination of care (as documented) at patient's floor/unit and/or counseling patient: Coding Level of Care Code 79126 SUB INP/OBS CARE MIN Diagnoses NSTEMI (non-ST elevated myocardial infarction) I21.4
--- NOTE | 2024-11-13 14:57 | Electrocardiogram Report ---
Test Reason : Blood Pressure : */* mmHG Vent. Rate : 62 BPM Atrial Rate : 62 BPM P-R Int : 158 ms QRS Dur : 78 ms QT Int : 418 ms P-R-T Axes : 63 12 15 degrees QTcB Int : 424 ms Normal sinus rhythm Normal ECG When compared with ECG of 12-Nov-2024 15:53, No significant change was found Confirmed by Minor Rossi ([id number]) on 11/13/2024 2:57:38 PM Referred By: REFERRED SELF Confirmed By: Minor Rossi
== END 2024-11-13 10:26 | disposition home or self-care (01) | DRG 322 ==
LOC: ED 19:06 → 2S 22:48 → SUATTDRO 22:48 → 2S 23:20